=== PATIENT | female | born 1975 | race Caucasian/White ===

== ENCOUNTER 2018-08-18 11:34 | Emergency (ER) | payer OTHER ==
[2018-08-18] MEDS ORDERED: Sodium Chloride 0.9% 10 ML Syringe FLUSH PRN (11:49)
[2018-08-18] MEDS ORDERED: Sodium Chloride 0.9% 1,000 ML IV ONE (11:49)
[2018-08-18] MEDS ORDERED: Sodium Chloride 0.9% 2.5 ML Syringe FLUSH PRN (11:49)
--- NOTE | 2018-08-18 11:50 | EDM.PDOC ---
ED HPI GENERAL MEDICAL PROBLEM - General Chief Complaint: Abdominal Pain Stated Complaint: RECTAL BLEEDING Time Seen by Provider: 08/18/18 11:35 Source of Information: Reports: Patient History Limitations: Reports: No Limitations - History of Present Illness INITIAL COMMENTS - FREE TEXT/NARRATIVE: History of present illness: []Patient has had rectal bleeding since beginning of this year that has been receiving. She has an appointment with Dr. Nieto next week. She has diffuse abdominal pain is not localized to any specific area. Patient has been nauseated with nonbloody emesis. She denies any fevers, chills, new medications or diet changes. Patient denies being on any blood thinners or NSAID use. Review of systems: As per history of present illness and below otherwise all systems reviewed and negative. Past medical history: As per history of present illness and as reviewed below otherwise noncontributory. Surgical history: As per history of present illness and as reviewed below otherwise noncontributory. Social history: No reported history of drug or alcohol abuse. Family history: As per history of present illness and as reviewed below otherwise noncontributory. Physical exam: General: Well developed, well nourished in NAD HEENT: Atraumatic, normocephalic, pupils reactive, negative for conjunctival pallor or scleral icterus, mucous membranes moist, throat clear, neck supple, nontender, trachea midline. Lungs: Clear to auscultation, breath sounds equal bilaterally, chest nontender. Heart: S1S2, regular, negative for clicks, rubs, or JVD. Abdomen: NABS, Soft, nondistended, nontender. Negative for masses or hepatosplenomegaly. Negative for costovertebral tenderness. Pelvis: Stable nontender. Genitourinary: Deferred. Rectal: Patient declined exam Extremities: Atraumatic, negative for cords or calf pain. Neurovascular unremarkable. Neuro: Awake, alert, oriented. Cranial nerves II through XII unremarkable. Cerebellum unremarkable. Motor and sensory unremarkable throughout. Exam nonfocal. Skin:warm and dry Diagnostics: CBC, chemistry, coags, type and screen Therapeutics: IV hydration ED Course: Patient had an H&H on August 13 and today's H&H is unchanged. Her heart rate improved with hydration and she feels much better. Impression: Rectal bleeding Prescriptions: Zofran Plan: Follow-up with general surgery as scheduled return to ER if symptoms worsen or change. Definitive disposition and diagnosis as appropriate pending reevaluation and review of above. 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 ED EXAM, GI/ABD - Physical Exam Exam: See Below (See history of present illness) Course - Vital Signs Last Recorded V/S: Last Vital Signs Temp 97.9 F 08/18/18 11:43 Pulse 97 08/18/18 12:06 Resp 18 08/18/18 12:06 BP 108/69 08/18/18 12:06 Pulse Ox 98 08/18/18 12:06 - Orders/Labs/Meds Orders: Active Orders 24 hr Category Date Time Status COMPREHENSIVE METABOLIC PN,CMP [CHEM] Stat Lab 08/18/18 12:00 Received TYPE AND SCREEN [BBK] Stat Lab 08/18/18 12:00 Received Sodium Chloride 0.9% [Normal Saline] 1,000 ml Med 08/18/18 11:49 Active IV .Bolus Sodium Chloride 0.9% [Saline Flush] Med 08/18/18 11:49 Active 10 ml FLUSH ASDIRECTED PRN Sodium Chloride 0.9% [Saline Flush] Med 08/18/18 11:49 Active 2.5 ml FLUSH ASDIRECTED PRN Saline Lock Insert [OM.PC] Stat Oth 08/18/18 11:49 Ordered Medication Orders Sodium Chloride (Normal Saline) 1,000 mls @ 999 mls/hr IV .Bolus ONE Stop: 08/18/18 12:49 Last Admin: 08/18/18 12:03 Dose: 999 mls/hr Sodium Chloride (Saline Flush) 10 ml FLUSH ASDIRECTED PRN PRN Reason: Keep Vein Open Last Admin: 08/18/18 12:04 Dose: 10 ml Sodium Chloride (Saline Flush) 2.5 ml FLUSH ASDIRECTED PRN PRN Reason: Keep Vein Open Last Admin: 08/18/18 12:04 Dose: 2.5 ml Labs: Laboratory Tests 08/18/18 08/18/18 Range/Units 12:00 12:00 WBC 8.73 (4.0-11.0) K/uL RBC 4.41 (4.30-5.90) M/uL Hgb 13.7 (12.0-16.0) g/dL Hct 39.5 (36.0-46.0) % MCV 89.6 (80.0-98.0) fL MCH 31.1 (27.0-32.0) pg MCHC 34.7 (31.0-37.0) g/dL RDW Std Deviation 40.0 (28.0-62.0) fl RDW Coeff of [place] 12 (11.0-15.0) % Plt Count 426 H (150-400) K/uL MPV 8.70 (7.40-12.00) fL Neut % (Auto) 72.6 (48.0-80.0) % Lymph % (Auto) 14.8 L (16.0-40.0) % [place] % (Auto) 10.3 (0.0-15.0) % Eos % (Auto) 2.1 (0.0-7.0) % Baso % (Auto) 0.2 (0.0-1.5) % Neut # (Auto) 6.3 H (1.4-5.7) K/uL Lymph # (Auto) 1.3 (0.6-2.4) K/uL [place] # (Auto) 0.9 H (0.0-0.8) K/uL Eos # (Auto) 0.2 (0.0-0.7) K/uL Baso # (Auto) 0.0 (0.0-0.1) K/uL Nucleated RBC % 0.0 /100WBC Nucleated RBCs # 0 K/uL INR 1.13 APTT 26.4 (18.6-31.3) SEC Meds: Medications Generic Name Dose Route Start Last Admin Trade Name Freq PRN Reason Stop Dose Admin Sodium Chloride 1,000 mls @ 999 mls/hr 08/18/18 11:49 08/18/18 12:03 Normal Saline IV 08/18/18 12:49 999 mls/hr .Bolus ONE Administration Sodium Chloride 10 ml 08/18/18 11:49 08/18/18 12:04 Saline Flush FLUSH 10 ml ASDIRECTED PRN Administration Keep Vein Open Sodium Chloride 2.5 ml 08/18/18 11:49 08/18/18 12:04 Saline Flush FLUSH 2.5 ml ASDIRECTED PRN Administration Keep Vein Open Departure - Departure Time of Disposition: 12:39 Disposition: Home, Self-Care 01 Condition: Good Clinical Impression: Rectal bleeding - Discharge Information *PRESCRIPTION DRUG MONITORING PROGRAM REVIEWED*: No *COPY OF PRESCRIPTION DRUG MONITORING REPORT IN PATIENT STACI: No Prescriptions: Ondansetron HCl [Zofran] 4 mg PO Q4HR #12 tablet Referrals: John Hodge MD [Primary Care Provider] - Forms: ED Department Discharge Additional Instructions: The following information is given to patients seen in the emergency department who are being discharged to home. This information is to outline your options for follow-up care. We provide all patients seen in our emergency department with a follow-up referral. The need for follow-up, as well as the timing and circumstances, are variable depending upon the specifics of your emergency department visit. If you don't have a primary care physician on staff, we will provide you with a referral. We always advise you to contact your personal physician following an emergency department visit to inform them of the circumstance of the visit and for follow-up with them and/or the need for any referrals to a consulting specialist. The emergency department will also refer you to a specialist when appropriate. This referral assures that you have the opportunity for follow-up care with a specialist. All of these measure are taken in an effort to provide you with optimal care, which includes your follow-up. Under all circumstances we always encourage you to contact your private physician who remains a resource for coordinating your care. When calling for follow-up care, please make the office aware that this follow-up is from your recent emergency room visit. If for any reason you are refused follow-up, please contact the [facility] Emergency Department at and asked to speak to the emergency department charge nurse. Follow-up with Dr. Nieto as scheduled takes Zofran for nausea and vomiting, return to ER if any symptoms worsen or change. [facility] - General Surgery Professional Building [address] [place] [address], [address] [place] [address] - My Orders Last 24 Hours: My Active Orders 08/18/18 11:49 Sodium Chloride 0.9% [Normal Saline] 1,000 ml IV .Bolus Sodium Chloride 0.9% [Saline Flush] 10 ml FLUSH ASDIRECTED PRN Sodium Chloride 0.9% [Saline Flush] 2.5 ml FLUSH ASDIRECTED PRN Saline Lock Insert [OM.PC] Stat 08/18/18 12:00 COMPREHENSIVE METABOLIC PN,CMP [CHEM] Stat TYPE AND SCREEN [BBK] Stat - Assessment/Plan Last 24 Hours: My Active Orders 08/18/18 11:49 Sodium Chloride 0.9% [Normal Saline] 1,000 ml IV .Bolus Sodium Chloride 0.9% [Saline Flush] 10 ml FLUSH ASDIRECTED PRN Sodium Chloride 0.9% [Saline Flush] 2.5 ml FLUSH ASDIRECTED PRN Saline Lock Insert [OM.PC] Stat 08/18/18 12:00 COMPREHENSIVE METABOLIC PN,CMP [CHEM] Stat TYPE AND SCREEN [BBK] Stat
[2018-08-18 12:07] VITALS: BP 108/69
[2018-08-18 12:35] LABS: CHLORIDE,CL 101 mmol/L (98-107); SODIUM,NA 137 mmol/L (136-145)
== END 2018-08-18 12:59 | disposition home or self-care (01) ==
LOC: MW.ED 11:34
DX: K62.5 Hemorrhage of anus and rectum (principal)
CPT/HCPCS: 36415; 80053; 85025; 85610; 85730; 86850; 86900; 86901; 96360; 99283; J7040

== ENCOUNTER 2018-08-25 15:54 | Inpatient (IN) | payer OTHER ==
[2018-08-25] MEDS ORDERED: Ondansetron 4 MG/2 ML SDV IVPUSH PRN (16:06)
[2018-08-25] MEDS ORDERED: Morphine 10 MG/ML Syringe IVPUSH PRN (16:06)
[2018-08-25] MEDS ORDERED: Acetaminophen 325 MG Tab PO PRN (16:06)
[2018-08-25] MEDS ORDERED: Sodium Chloride 0.9% 2.5 ML Syringe FLUSH PRN (16:06)
--- NOTE | 2018-08-25 16:12 | PCM.HP ---
H&P History of Present Illness - General Date of Service: 08/25/18 Admit Problem/Dx: Admission Diagnosis/Problem Admission Diagnosis/Problem Diarrhea Source of Information: Patient History Limitations: Reports: No Limitations - History of Present Illness Initial Comments - Free Text/Narative: This 43 year old female with no significant pmh presented to Dr Holliday's office today after referral from PCP for diarrhea and blood stools. She reports this started middle of last month and she has been on and off nauseated with vomiting along with 30 stools a day that are mucousy and bloody. She reports urgency and painful stools with abdominal cramping when stools come on. She denies overt abdominal pain, but reports it feels sore, 1-2/10. She denies overt fevers and chills but reports intermittently having night sweats. She reports losing 25 pounds or so in the last 2 months. Mainly been drinking CL for over a month. 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 Reports having a colonscopy 10 years ago in [place] and per her report it was normal, she was told her diarrhea was from IBS at that time, she soon after found out she was and was not able to start medication the MD had ordered for her. She is unsure of what this is. She denies tobacco or alcohol use and no recreational drug use. No family history of colorectal ca. In the clinic, no leukocytosis noted. BUN 6, Cr 0.8/ K+ 3.7, Cdiff negative and campylobacter negative. other stool cultures and O&P pending. Positive leukocytes in the stool. CT of abdomen obtained as well which noted diffuse colonic wall thickening and enhancement rectum to transverse colon, question inflammatory versus infectious. PCP, Dr Hodge - Related Data Allergies/Adverse Reactions: Allergies Allergy/AdvReac Type Severity Reaction Status Date / Time No Known Allergies Allergy Verified 08/18/18 11:47 Home Medications: Home Meds Ondansetron HCl [Zofran] 4 mg PO Q4HR #12 tablet 08/18/18 [Rx] Past Medical History - Past Health History Medical/Surgical History: Denies Medical/Surgical History Cardiovascular History: Reports: None. Denies: CAD, Hypertension, MS Respiratory History: Reports: None. Denies: COPD, SOB Gastrointestinal History: Reports: Irritable Bowel Syndrome [employer] History: Reports: Musculoskeletal History: Reports: None Endocrine/Metabolic History: Reports: None. Denies: Diabetes, Type II, Hypothyroidism - Infectious Disease History Infectious Disease History: Reports: Chicken Pox Social & Family History - Family History Family Medical History: Noncontributory OBGYN: Reports: Oncologic: Reports: Prostate - Tobacco Use Smoking Status *Q: Never Smoker - Alcohol Use Alcohol Use History: No - Living Situation & Occupation Living situation: Reports: H&P Review of Systems - Review of Systems: Review Of Systems: See Below General: Reports: Malaise, Weakness, Fatigue, Night Sweats, Decreased Appetite. Denies: Fever, Chills HEENT: Denies: Headaches, Sinus Congestion, Sore Throat Pulmonary: Denies: Shortness of Breath, Wheezing, Cough, Sputum Cardiovascular: Denies: Chest Pain, Palpitations, Edema Gastrointestinal: Reports: Abdominal Pain (soreness diffusely), Bloody Stool, Decreased Appetite, Nausea, Vomiting Genitourinary: Reports: No Symptoms. Denies: Dysuria, Frequency, Burning Musculoskeletal: Reports: No Symptoms Skin: Reports: No Symptoms Psychiatric: Reports: No Symptoms Neurological: Reports: No Symptoms Hematologic/Lymphatic: Reports: No Symptoms Immunologic: Reports: No Symptoms Exam - Exam Exam: See Below - Exam General: Alert, Oriented, Cooperative HEENT: Conjunctiva Clear, Posterior Pharynx Clear. No: Mucosa Moist & [place] ( dry cracked lips.) Neck: Supple, Trachea Midline Lungs: Clear to Auscultation, Normal Respiratory Effort Cardiovascular: Regular Rate, Regular Rhythm, Normal S1, Normal S2 GI/Abdominal Exam: Normal Bowel Sounds, Soft, No Mass, Tender (reports soreness , no overt sharp tenderness.) Back Exam: Normal Inspection, Full Range of Motion Extremities: Normal Inspection, Normal Range of Motion, Non-Tender, No Pedal Edema Neuro Extensive - Mental Status: Alert, Oriented x3 Neuro Extensive - Motor, Sensory, Reflexes: CN II-XII Intact Psychiatric: Alert, Normal Affect, Normal Mood - Problem List (1) Diarrhea SNOMED Code(s): 09775225 ICD Code: R19.7 - DIARRHEA, UNSPECIFIED Status: Acute Current Visit: Yes (2) Colitis SNOMED Code(s): 98524483 ICD Code: K52.9 - NONINFECTIVE GASTROENTERITIS AND COLITIS, UNSPECIFIED Status: Acute Current Visit: Yes (3) Rectal bleeding SNOMED Code(s): 54400995 ICD Code: K62.5 - HEMORRHAGE OF ANUS AND RECTUM Status: Acute Current Visit: No Problem List Initiated/Reviewed/Updated: Yes Orders Last 24hrs: Active Orders 24 hr Category Date Time Status Patient Status [ADT] Routine ADT 08/25/18 16:06 Active Intake and Output [RC] QSHIFT Care 08/25/18 16:07 Active May Shower [RC] ASDIRECTED Care 08/25/18 16:06 Active Oxygen Therapy [RC] PRN Care 08/25/18 16:06 Active Up ad Cheryle [RC] ASDIRECTED Care 08/25/18 16:06 Active VTE/DVT Education [RC] PER UNIT ROUTINE Care 08/25/18 16:06 Active Vital Signs [RC] Q4H Care 08/25/18 16:06 Active Clear Liquid Diet [DIET] Diet 08/25/18 Dinner Active C-REACTIVE PROTEIN [CHEM] Routine Lab 08/25/18 16:06 Ordered CBC WITH AUTO DIFF [HEME] AM Lab 08/26/18 05:11 Ordered COMPREHENSIVE METABOLIC PN,CMP [CHEM] AM Lab 08/26/18 05:11 Ordered SEDIMENTATION RATE AUTO [HEME] Routine Lab 08/25/18 16:06 Ordered Acetaminophen [Tylenol] Med 08/25/18 16:06 Active 650 mg PO Q4H PRN Ciprofloxacin in D5W [Cipro in D5W 400 MG/200 ML] 400 Med 08/25/18 16:15 Active mg Premix Bag 1 bag IV Q12H Morphine Med 08/25/18 16:06 Ordered 2 mg IVPUSH Q2H PRN Ondansetron [Zofran] Med 08/25/18 16:06 Ordered 4 mg IVPUSH Q4H PRN Sodium Chloride 0.9% [Normal Saline] 1,000 ml Med 08/25/18 16:15 Ordered IV ASDIRECTED Sodium Chloride 0.9% [Saline Flush] Med 08/25/18 16:06 Active 2.5 ml FLUSH ASDIRECTED PRN metroNIDAZOLE/Normal Saline [Flagyl 500 MG in NS 100 ML Med 08/25/18 18:00 Ordered ] 500 mg Premix Bag 1 bag IV QID Saline Lock Insert [OM.PC] Routine Oth 08/25/18 16:06 Ordered Sequential Compression Device [OM.PC] Per Unit Routine Oth 08/25/18 16:07 Ordered Resuscitation Status Routine Resus Stat 08/25/18 16:06 Ordered Medication Orders Acetaminophen (Tylenol) 650 mg PO Q4H PRN PRN Reason: Pain (mild 1-3) Sodium Chloride (Normal Saline) 1,000 mls @ 125 mls/hr IV ASDIRECTED VALERIE Ciprofloxacin/Dextrose 400 mg/ (Premix) 200 mls @ 200 mls/hr IV Q12H VALERIE Metronidazole 500 mg/ Premix 100 mls @ 100 mls/hr IV QID VALERIE Morphine Sulfate (Morphine) 2 mg IVPUSH Q2H PRN PRN Reason: Pain (severe 7-10) Stop: 08/26/18 16:08 Ondansetron HCl (Zofran) 4 mg IVPUSH Q4H PRN PRN Reason: Nausea Sodium Chloride (Saline Flush) 2.5 ml FLUSH ASDIRECTED PRN PRN Reason: Keep Vein Open Assessment/Plan Comment:: This 43 year old female admitted with diarrhea, bloody stools and colitis 1. Colitis: Unknown if infectious vs inflammatory. Will check ESR CRP. Will keep CL diet for know. Start IVFs NS 125 for hydration. Will also start Cipro and flagyl and away further stool studies. Consult Dr Holliday. VTE prophylaxis: SCDs only Dispo: 1-2 days pending improvement.
[2018-08-25] MEDS: Sodium Chloride 0.9% 1,000 ML IV SCH (17:04)
[2018-08-25] MEDS: Ciprofloxacin in D5W 400 MG in Premix Bag 1 BAG IV SCH ×2 (17:04)
--- NOTE | 2018-08-25 17:06 | PCM.CONS ---
H&P History of Present Illness - General Date of Service: 08/25/18 Admit Problem/Dx: Admission Diagnosis/Problem Admission Diagnosis/Problem Diarrhea Source of Information: Patient History Limitations: Reports: No Limitations - History of Present Illness Initial Comments - Free Text/Narative: Patient is a 43-year-old female who presented to my clinic today with concerns of chronic diarrhea. This is associated with frequency, tenesmus, and hematochezia. She was seen by her primary care physician and by the emergency room. CBC and CMP was normal. She complained of multiple bloody stools last evening associated with lower abdominal cramping and nausea. She has lost 25 pounds and has been on a clear liquid diet for the past month. On clinical exam her abdomen was flat soft and nontender with no peritoneal signs however she was clearly failing to thrive. I ordered repeat blood work as well as stool studies and a stat CT abdomen pelvis. The CT showed diffuse thickening of the colon from the transverse colon down to the rectum. Her C. difficile and Campylobacter stool studies were negative. Her CBC was normal and her hemoglobin was stable. Given the possible inflammatory versus infectious etiology the colon as seen on CT scan I asked my medicine colleagues to admit the patient for further workup. They graciously agreed. See their notes for further details. - Related Data Allergies/Adverse Reactions: Allergies Allergy/AdvReac Type Severity Reaction Status Date / Time No Known Allergies Allergy Verified 08/18/18 11:47 Home Medications: Home Meds Ondansetron HCl [Zofran] 4 mg PO Q4HR #12 tablet 08/18/18 [Rx] Past Medical History - Past Health History Medical/Surgical History: Denies Medical/Surgical History Cardiovascular History: Reports: None. Denies: CAD, Hypertension, MD Respiratory History: Reports: None. 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 Denies: Diabetes, Type II, Hypothyroidism - Infectious Disease History Infectious Disease History: Reports: Chicken Pox Social & Family History - Family History Family Medical History: Noncontributory OBGYN: Reports: Oncologic: Reports: Prostate - Tobacco Use Smoking Status *Q: Never Smoker - Living Situation & Occupation Living situation: Reports: H&P Review of Systems - Review of Systems: Review Of Systems: ROS reveals no pertinent complaints other than HPI. Exam - Exam Exam: See Below - Vital Signs Vital Signs: Last Vital Signs Temp 36.1 C 08/25/18 16:17 Pulse Resp 16 08/25/18 16:17 BP 99/67 08/25/18 16:17 Pulse Ox 100 08/25/18 16:17 Weight: 64.183 kg - Exam General: Alert, Oriented, Lethargic HEENT: Conjunctiva Clear, Mucosa Moist & [place], Posterior Pharynx Clear Neck: Supple, Trachea Midline Lungs: Clear to Auscultation, Normal Respiratory Effort Cardiovascular: Regular Rate, Regular Rhythm GI/Abdominal Exam: Soft, Non-Tender, No Distention, No Mass (Female) Exam: Normal External Exam Rectal (Female) Exam: Normal Exam, Normal Rectal Tone, Heme + Stool Back Exam: Normal Inspection Extremities: Normal Inspection - Patient Data Lab Results Last 24 hrs: Laboratory Results - last 24 hr 08/25/18 Range/Units 10:35 ESR 53 H (0-19) mm/hr Consult PN Assessment/Plan Procedures: Procedures BLOOD TYPING SEROLOGIC ABO (08/18/18) BLOOD TYPING SEROLOGIC RH(D) (08/18/18) MERLY DNA DIR PROBE (08/16/18) CHORIONIC GONADOTROPIN TEST (08/10/18) COMPLETE CBC AUTOMATED (03/13/16) COMPLETE CBC W/AUTO DIFF WBC (08/18/18) COMPREHEN METABOLIC PANEL (08/18/18) CULTURE SCREEN ONLY (04/22/16) EMERGENCY DEPT VISIT (08/18/18) TALAVERA VAG DNA DIR PROBE (08/16/18) GLUCOSE TEST (03/13/16) GLUCOSE TOLERANCE TEST (GTT) (03/26/16) HYDRATION IV INFUSION INIT (08/18/18) PROTHROMBIN TIME (08/18/18) RBC ANTIBODY SCREEN (08/18/18) ROUTINE VENIPUNCTURE (08/18/18) SMEAR WET [place] SALINE/INK (10/12/15) THROMBOPLASTIN TIME PARTIAL (08/18/18) TRICHOMONAS VAGIN DIR PROBE (08/16/18) URINALYSIS AUTO W/SCOPE (08/13/18) URINE CULTURE/COLONY COUNT (08/10/18) (1) Colitis SNOMED Code(s): 02584700 Code(s): K52.9 - NONINFECTIVE GASTROENTERITIS AND COLITIS, UNSPECIFIED Current Visit: Yes (2) Diarrhea SNOMED Code(s): 98093548 Code(s): R19.7 - DIARRHEA, UNSPECIFIED Current Visit: Yes (3) Rectal bleeding SNOMED Code(s): 46851765 Code(s): K62.5 - HEMORRHAGE OF ANUS AND RECTUM Current Visit: No Problem List Initiated/Reviewed/Updated: Yes Plan: The patient is currently getting IV fluids, IV Cipro and Flagyl, and a clear liquid diet. We will await the results of the stool studies. We will see how she responds to her IV antibiotics. If she is positive for any infectious disease process we will treat that. If all of her testing is negative I'll consider her for a colonoscopy/sigmoidoscopy while inpatient to obtain biopsies and rule in or out an inflammatory etiology .
[2018-08-25] MEDS: metroNIDAZOLE/Normal Saline 500 MG in Premix Bag 1 BAG IV SCH ×2 (18:30→23:21)
[2018-08-26] MEDS: Ciprofloxacin in D5W 400 MG in Premix Bag 1 BAG IV SCH ×4 (04:25→16:45)
[2018-08-26] MEDS: metroNIDAZOLE/Normal Saline 500 MG in Premix Bag 1 BAG IV SCH ×4 (05:39→23:47)
[2018-08-26 06:05] LABS: CHLORIDE,CL 105 mmol/L (98-107); SODIUM,NA 140 mmol/L (136-145)
[2018-08-26] MEDS ORDERED: Potassium Chloride 40 MEQ in Sodium Chloride 0.9% 500 ML IV ONE (07:57)
--- NOTE | 2018-08-26 08:01 | PCM.PN ---
- General Info Date of Service: 08/26/18 Admission Dx/Problem (Free Text): Admission Diagnosis/Problem Admission Diagnosis/Problem Diarrhea Subjective Update: Feeling ok this morning, had loose bloody stools overnight, less than the night previous. Feeling more hydrated. No pain. No chest pain or dyspnea. Abdominal tenderness. Functional Status: Reports: Pain Controlled, Tolerating Diet, Ambulating, Urinating - Review of Systems General: Reports: Fatigue, Malaise. Denies: Fever Pulmonary: Reports: No Symptoms. Denies: Shortness of Breath Cardiovascular: Reports: No Symptoms. Denies: Chest Pain Gastrointestinal: Reports: No Symptoms. Denies: Abdominal Pain, Nausea, Vomiting Genitourinary: Reports: No Symptoms. Denies: Frequency, Burning Musculoskeletal: Reports: No Symptoms Skin: Reports: No Symptoms Neurological: Reports: No Symptoms Psychiatric: Reports: No Symptoms - Patient Data Vitals - Most Recent: Last Vital Signs Temp 97.6 F 08/26/18 07:45 Pulse 85 08/26/18 07:45 Resp 17 08/26/18 07:45 BP 100/59 L 08/26/18 07:45 Pulse Ox 97 08/26/18 07:45 Weight - Most Recent: 64.183 kg I&O - Last 24 Hours: Intake & Output 08/25/18 08/26/18 08/26/18 22:59 06:59 14:59 Intake Total 300 1714 Output Total 700 Balance 300 1014 Lab Results Last 24 Hours: Laboratory Results - last 24 hr 08/25/18 08/25/18 08/26/18 Range/Units 10:35 10:35 05:15 WBC 7.73 (4.0-11.0) K/uL RBC 3.89 L (4.30-5.90) M/uL Hgb 11.6 L (12.0-16.0) g/dL Hct 34.7 L (36.0-46.0) % MCV 89.2 (80.0-98.0) fL MCH 29.8 (27.0-32.0) pg MCHC 33.4 (31.0-37.0) g/dL RDW Std Deviation 40.4 (28.0-62.0) fl RDW Coeff of [place] 13 (11.0-15.0) % Plt Count 462 H (150-400) K/uL MPV 8.50 (7.40-12.00) fL Neut % (Auto) 64.7 (48.0-80.0) % Lymph % (Auto) 20.3 (16.0-40.0) % [place] % (Auto) 8.4 (0.0-15.0) % Eos % (Auto) 6.5 (0.0-7.0) % Baso % (Auto) 0.1 (0.0-1.5) % Neut # (Auto) 5.0 (1.4-5.7) K/uL Lymph # (Auto) 1.6 (0.6-2.4) K/uL [place] # (Auto) 0.7 (0.0-0.8) K/uL Eos # (Auto) 0.5 (0.0-0.7) K/uL Baso # (Auto) 0.0 (0.0-0.1) K/uL Nucleated RBC % 0.0 /100WBC Nucleated RBCs # 0 K/uL ESR 53 H (0-19) mm/hr Sodium (136-145) mmol/L Potassium (3.5-5.1) mmol/L Chloride (98-107) mmol/L Carbon Dioxide (21.0-32.0) mmol/L BUN (7.0-18.0) mg/dL Creatinine (0.6-1.0) mg/dL Est Cr Clr Drug Dosing mL/min Estimated GFR (MDRD) ml/min Glucose (74-106) mg/dL Calcium (8.5-10.1) mg/dL Total Bilirubin (0.2-1.0) mg/dL AST (15-37) IU/L ALT (14-63) IU/L Alkaline Phosphatase (46-116) U/L C-Reactive Protein 16.00 H (0.00-0.90) mg/dL Total Protein (6.4-8.2) g/dL Albumin (3.4-5.0) g/dL Globulin (2.6-4.0) g/dL Albumin/Globulin Ratio (0.9-1.6) 08/26/18 Range/Units 05:15 WBC (4.0-11.0) K/uL RBC (4.30-5.90) M/uL Hgb (12.0-16.0) g/dL Hct (36.0-46.0) % MCV (80.0-98.0) fL MCH (27.0-32.0) pg MCHC (31.0-37.0) g/dL RDW Std Deviation (28.0-62.0) fl RDW Coeff of [place] (11.0-15.0) % Plt Count (150-400) K/uL MPV (7.40-12.00) fL Neut % (Auto) (48.0-80.0) % Lymph % (Auto) (16.0-40.0) % [place] % (Auto) (0.0-15.0) % Eos % (Auto) (0.0-7.0) % Baso % (Auto) (0.0-1.5) % Neut # (Auto) (1.4-5.7) K/uL Lymph # (Auto) (0.6-2.4) K/uL [place] # (Auto) (0.0-0.8) K/uL Eos # (Auto) (0.0-0.7) K/uL Baso # (Auto) (0.0-0.1) K/uL Nucleated RBC % /100WBC Nucleated RBCs # K/uL ESR (0-19) mm/hr Sodium 140 (136-145) mmol/L Potassium 3.2 L (3.5-5.1) mmol/L Chloride 105 (98-107) mmol/L Carbon Dioxide 26.5 (21.0-32.0) mmol/L BUN 5 L (7.0-18.0) mg/dL Creatinine 0.8 (0.6-1.0) mg/dL Est Cr Clr Drug Dosing 75.78 mL/min Estimated GFR (MDRD) > 60.0 ml/min Glucose 132 H (74-106) mg/dL Calcium 8.3 L (8.5-10.1) mg/dL Total Bilirubin 0.3 (0.2-1.0) mg/dL AST 7 L (15-37) IU/L ALT 9 L (14-63) IU/L Alkaline Phosphatase 58 (46-116) U/L C-Reactive Protein (0.00-0.90) mg/dL Total Protein 5.7 L (6.4-8.2) g/dL Albumin 1.8 L (3.4-5.0) g/dL Globulin 3.9 (2.6-4.0) g/dL Albumin/Globulin Ratio 0.5 L (0.9-1.6) Med Orders - Current: Current Medications Acetaminophen (Tylenol) 650 mg PO Q4H PRN PRN Reason: Pain (mild 1-3) Sodium Chloride (Normal Saline) 1,000 mls @ 125 mls/hr IV ASDIRECTED [facility] Last Admin: 08/25/18 17:04 Dose: 125 mls/hr Ciprofloxacin/Dextrose 400 mg/ (Premix) 200 mls @ 200 mls/hr IV Q12H [facility] Last Admin: 08/26/18 04:25 Dose: 200 mls/hr Metronidazole 500 mg/ Premix 100 mls @ 100 mls/hr IV QID [facility] Last Admin: 08/26/18 05:39 Dose: 100 mls/hr Potassium Chloride 40 meq/ (Sodium Chloride) 500 mls @ 150 mls/hr IV ONETIME ONE Stop: 08/26/18 11:16 Morphine Sulfate (Morphine) 2 mg IVPUSH Q2H PRN PRN Reason: Pain (severe 7-10) Stop: 08/26/18 16:08 Ondansetron HCl (Zofran) 4 mg IVPUSH Q4H PRN PRN Reason: Nausea Sodium Chloride (Saline Flush) 2.5 ml FLUSH ASDIRECTED PRN PRN Reason: Keep Vein Open - Exam General: Alert, Oriented, Cooperative, No Acute Distress Neck: Supple Lungs: Clear to Auscultation, Normal Respiratory Effort Cardiovascular: Regular Rate, Regular Rhythm GI/Abdominal Exam: Normal Bowel Sounds, Soft, Tender (soreness diffusely) Back Exam: Normal Inspection, Full Range of Motion Extremities: Normal Inspection, Normal Range of Motion, Non-Tender, No Pedal Edema Wound/Incisions: Healing Well Neurological: No New Focal Deficit Psy/Mental Status: Alert, Normal Affect, Normal Mood - Problem List & Annotations (1) Diarrhea SNOMED Code(s): 21678390 Code(s): R19.7 - DIARRHEA, UNSPECIFIED Status: Acute Current Visit: Yes (2) Colitis SNOMED Code(s): 95827077 Code(s): K52.9 - NONINFECTIVE GASTROENTERITIS AND COLITIS, UNSPECIFIED Status: Acute Current Visit: Yes (3) Rectal bleeding SNOMED Code(s): 06601228 Code(s): K62.5 - HEMORRHAGE OF ANUS AND RECTUM Status: Acute Current Visit: No - Problem List Review Problem List Initiated/Reviewed/Updated: Yes - My Orders Last 24 Hours: My Active Orders 08/25/18 16:06 Patient Status [ADT] Routine May Shower [RC] ASDIRECTED Oxygen Therapy [RC] PRN Up ad Cheryle [RC] ASDIRECTED VTE/DVT Education [RC] PER UNIT ROUTINE Vital Signs [RC] Q4H Acetaminophen [Tylenol] 650 mg PO Q4H PRN Morphine 2 mg IVPUSH Q2H PRN Ondansetron [Zofran] 4 mg IVPUSH Q4H PRN Sodium Chloride 0.9% [Saline Flush] 2.5 ml FLUSH ASDIRECTED PRN Saline Lock Insert [OM.PC] Routine Resuscitation Status Routine 08/25/18 16:07 Intake and Output [RC] Q12H Sequential Compression Device [OM.PC] Per Unit Routine 08/25/18 16:15 Ciprofloxacin in D5W [Cipro in D5W 400 MG/200 ML] 400 mg Premix Bag 1 bag IV Q12H Sodium Chloride 0.9% [Normal Saline] 1,000 ml IV ASDIRECTED 08/25/18 16:50 Consult to Physician [CONS] Routine 08/25/18 16:51 Notify Provider Consults [RC] ASDIRECTED 08/25/18 18:00 metroNIDAZOLE/Normal Saline [Flagyl 500 MG in NS 100 ML] 500 mg Premix Bag 1 bag IV QID 08/25/18 Dinner Clear Liquid Diet [DIET] 08/26/18 07:57 Potassium Chloride 40 meq Sodium Chloride 0.9% [Normal Saline] 480 ml IV ONETIME 08/26/18 07:58 MAGNESIUM [CHEM] Routine - Plan Plan:: This 43 year old female admitted with diarrhea, bloody stools and colitis 1. Colitis: Unknown if infectious vs inflammatory. ESR CRP elevated, stool studies returning negative. Suspected inflammatory. NPO this morning, Dr Holliday will take to OR and perform sigmoidoscopy today. Continue IVFs NS 125 for hydration. Continue Cipro and Flagyl and await further stool studies. VTE prophylaxis: SCDs only Dispo: 1-2 days pending improvement.
--- NOTE | 2018-08-26 10:31 | PCM.PREANE ---
Preanesthetic Assessment - Anesthesia/Transfusion/Family Hx Anesthesia History: Prior Anesthesia Without Reaction Family History of Anesthesia Reaction: No Transfusion History: No Prior Transfusion(s) Intubation History: Unknown - Review of Systems General: No Symptoms Pulmonary: No Symptoms Cardiovascular: No Symptoms Gastrointestinal: Hematochezia (one month duration) Neurological: No Symptoms Other: Reports: None - Physical Assessment O2 Sat by Pulse Oximetry: 97 Respiratory Rate: 17 Vital Signs: Last Vital Signs Temp 36.4 C 08/26/18 07:45 Pulse 85 08/26/18 07:45 Resp 17 08/26/18 07:45 BP 100/59 L 08/26/18 07:45 Pulse Ox 97 08/26/18 07:45 Height: 1.6 m Weight: 64.183 kg ASA Class: 2 Mental Status: Alert & Oriented x3 Airway Class: Mallampati = 2 Dentition: Reports: Normal Dentition Thyro-Mental Finger Breadths: 3 Mouth Opening Finger Breadths: 2 ROM/Head Extension: Full Lungs: Clear to Auscultation, Normal Respiratory Effort Cardiovascular: Regular Rate, Regular Rhythm - Lab Values: Laboratory Last Values WBC 7.73 K/uL (4.0-11.0) 08/26/18 05:15 RBC 3.89 M/uL (4.30-5.90) L 08/26/18 05:15 Hgb 11.6 g/dL (12.0-16.0) L 08/26/18 05:15 Hct 34.7 % (36.0-46.0) L 08/26/18 05:15 MCV 89.2 fL (80.0-98.0) 08/26/18 05:15 MCH 29.8 pg (27.0-32.0) 08/26/18 05:15 MCHC 33.4 g/dL (31.0-37.0) 08/26/18 05:15 RDW Std Deviation 40.4 fl (28.0-62.0) 08/26/18 05:15 RDW Coeff of [place] 13 % (11.0-15.0) 08/26/18 05:15 Plt Count 462 K/uL (150-400) H 08/26/18 05:15 MPV 8.50 fL (7.40-12.00) 08/26/18 05:15 Neut % (Auto) 64.7 % (48.0-80.0) 08/26/18 05:15 Lymph % (Auto) 20.3 % (16.0-40.0) 08/26/18 05:15 [place] % (Auto) 8.4 % (0.0-15.0) 08/26/18 05:15 Eos % (Auto) 6.5 % (0.0-7.0) 08/26/18 05:15 Baso % (Auto) 0.1 % (0.0-1.5) 08/26/18 05:15 Neut # (Auto) 5.0 K/uL (1.4-5.7) 08/26/18 05:15 Lymph # (Auto) 1.6 K/uL (0.6-2.4) 08/26/18 05:15 [place] # (Auto) 0.7 K/uL (0.0-0.8) 08/26/18 05:15 Eos # (Auto) 0.5 K/uL (0.0-0.7) 08/26/18 05:15 Baso # (Auto) 0.0 K/uL (0.0-0.1) 08/26/18 05:15 Nucleated RBC % 0.0 /100WBC 08/26/18 05:15 Nucleated RBCs # 0 K/uL 08/26/18 05:15 ESR 53 mm/hr (0-19) H 08/25/18 10:35 Sodium 140 mmol/L (136-145) 08/26/18 05:15 Potassium 3.2 mmol/L (3.5-5.1) L 08/26/18 05:15 Chloride 105 mmol/L (98-107) 08/26/18 05:15 Carbon Dioxide 26.5 mmol/L (21.0-32.0) 08/26/18 05:15 BUN 5 mg/dL (7.0-18.0) L 08/26/18 05:15 Creatinine 0.8 mg/dL (0.6-1.0) 08/26/18 05:15 Est Cr Clr Drug Dosing 75.78 mL/min 08/26/18 05:15 Estimated GFR (MDRD) > 60.0 ml/min 08/26/18 05:15 Glucose 132 mg/dL (74-106) H 08/26/18 05:15 Calcium 8.3 mg/dL (8.5-10.1) L 08/26/18 05:15 Magnesium 2.1 mg/dL (1.8-2.4) 08/26/18 05:15 Total Bilirubin 0.3 mg/dL (0.2-1.0) 08/26/18 05:15 AST 7 IU/L (15-37) L 08/26/18 05:15 ALT 9 IU/L (14-63) L 08/26/18 05:15 Alkaline Phosphatase 58 U/L (46-116) 08/26/18 05:15 C-Reactive Protein 16.00 mg/dL (0.00-0.90) H 08/25/18 10:35 Total Protein 5.7 g/dL (6.4-8.2) L 08/26/18 05:15 Albumin 1.8 g/dL (3.4-5.0) L 08/26/18 05:15 Globulin 3.9 g/dL (2.6-4.0) 08/26/18 05:15 Albumin/Globulin Ratio 0.5 (0.9-1.6) L 08/26/18 05:15 HCG, Qual NEGATIVE (NEG) 08/26/18 05:15 - Allergies Allergies/Adverse Reactions: Allergies Allergy/AdvReac Type Severity Reaction Status Date / Time No Known Allergies Allergy Verified 08/18/18 11:47 - Blood Blood Available: No - Anesthesia Plan Pre-Op Medication Ordered: None - Acknowledgements Anesthesia Type Planned: MAC Pt an Appropriate Candidate for the Planned Anesthesia: Yes Alternatives and Risks of Anesthesia Discussed w Pt/Guardian: Yes Pt/Guardian Understands and Agrees with Anesthesia Plan: Yes PreAnesthesia Questionnaire - Past Health History Medical/Surgical History: Denies Medical/Surgical History Cardiovascular History: Reports: None. Denies: CAD, Hypertension, [place] Respiratory History: Reports: None. Denies: COPD, SOB Gastrointestinal History: Reports: Irritable Bowel Syndrome [employer] History: Reports: Musculoskeletal History: Reports: None Neurological History: Reports: Head Trauma Endocrine/Metabolic History: Reports: Other (See Below) (potassium level 3.2). Denies: Diabetes, Type II, Hypothyroidism Hematologic History: Reports: Anemia (mild) - Infectious Disease History Infectious Disease History: Reports: Chicken Pox - Past Surgical History GI Surgical History: Reports: Colonoscopy (12 years ago) Neurological Surgical History: Reports: None - SUBSTANCE USE Smoking Status *Q: Never Smoker Recreational Drug Use History: No - HOME MEDS Home Medications: Home Meds Ondansetron HCl [Zofran] 4 mg PO Q4HR #12 tablet 08/18/18 [Rx] - CURRENT (IN HOUSE) MEDS Current Meds: Current Medications Acetaminophen (Tylenol) 650 mg PO Q4H PRN PRN Reason: Pain (mild 1-3) Sodium Chloride (Normal Saline) 1,000 mls @ 125 mls/hr IV ASDIRECTED [facility] Last Admin: 08/25/18 17:04 Dose: 125 mls/hr Ciprofloxacin/Dextrose 400 mg/ (Premix) 200 mls @ 200 mls/hr IV Q12H [facility] Last Admin: 08/26/18 04:25 Dose: 200 mls/hr Metronidazole 500 mg/ Premix 100 mls @ 100 mls/hr IV QID [facility] Last Admin: 08/26/18 05:39 Dose: 100 mls/hr Potassium Chloride 40 meq/ (Sodium Chloride) 520 mls @ 130 mls/hr IV ONETIME ONE Stop: 08/26/18 11:56 Last Admin: 08/26/18 09:48 Dose: 130 mls/hr Morphine Sulfate (Morphine) 2 mg IVPUSH Q2H PRN PRN Reason: Pain (severe 7-10) Stop: 08/26/18 16:08 Ondansetron HCl (Zofran) 4 mg IVPUSH Q4H PRN PRN Reason: Nausea Sodium Chloride (Saline Flush) 2.5 ml FLUSH ASDIRECTED PRN PRN Reason: Keep Vein Open
[2018-08-26] MEDS ORDERED: Midazolam 1 MG/ML 2 ML SDV ONE (12:42)
[2018-08-26] MEDS ORDERED: fentaNYL 100 MCG/2 ML SDV ONE (12:42)
[2018-08-26] MEDS ORDERED: Propofol 200 MG/20 ML SDV ONE (12:43)
--- NOTE | 2018-08-26 13:35 | PCM.OPNOTE ---
- General Post-Op/Procedure Note Date of Surgery/Procedure: 08/26/18 Operative Procedure(s): Diagnostic proctoscopy Findings: Severe ulceration and inflammation of the rectum with bleeding consistent with ulcerative colitis. Pre Op Diagnosis: Colitis Post-Op Diagnosis: Ulcerative colitis Anesthesia Technique: [facility] [place] Primary Surgeon: Tanja Holliday Condition: Good Free Text/Narrative:: Intake & Output 08/25/18 08/26/18 08/26/18 22:59 06:59 14:59 Intake Total 300 1714 520 Output Total 700 Balance 300 1014 520
--- NOTE | 2018-08-26 13:37 | PCM.SN ---
- Free Text/Narrative Note: SPoke with Dr Holliday regarding Sigmoidoscopy findings, severe ulcerations noted. I called [facility] in [place] regarding next steps in treatment. He recommended IV Solumedrol 60 mg IV Q8hr for a couple days then transition to PO Prednisone 60 mg daily for 2 weeks, 40 mg x 2 weeks and by then she will have seen them and will have further direction in treatment. He gave me his nurses number so we can arrange for her to see him next week to set her up with another colonoscopy very soon, for further evaluation.
[2018-08-26] MEDS: methylPREDNISolone Sodium Succinate 125 MG/2 ML SDV IVPUSH SCH ×2 (14:54→21:12)
--- NOTE | 2018-08-26 16:10 | PCM.SURGPN ---
- General Info Date of Service: 08/26/18 Date of Surgery/Procedure: 08/26/18 POD#: 0 Functional Status: Reports: Ambulating, Urinating, New Symptoms, Incentive Spirometry - Review of Systems General: Reports: No Symptoms HEENT: Reports: No Symptoms Pulmonary: Reports: No Symptoms Cardiovascular: Reports: No Symptoms Gastrointestinal: Reports: Hematochezia - Patient Data Vitals - Most Recent: Last Vital Signs Temp 36.3 C 08/26/18 13:50 Pulse 83 08/26/18 13:50 Resp 16 08/26/18 13:50 BP 93/59 L 08/26/18 13:50 Pulse Ox 96 08/26/18 13:50 Weight - Most Recent: 64.183 kg I&O - Last 24 Hours: Intake & Output 08/26/18 08/26/18 08/26/18 06:59 14:59 22:59 Intake Total 1714 1320 100 Output Total 700 Balance 1014 1320 100 Lab Results Last 24 Hrs: Laboratory Results - last 24 hr 08/25/18 08/25/18 08/26/18 Range/Units 10:35 10:35 05:15 WBC 7.73 (4.0-11.0) K/uL RBC 3.89 L (4.30-5.90) M/uL Hgb 11.6 L (12.0-16.0) g/dL Hct 34.7 L (36.0-46.0) % MCV 89.2 (80.0-98.0) fL MCH 29.8 (27.0-32.0) pg MCHC 33.4 (31.0-37.0) g/dL RDW Std Deviation 40.4 (28.0-62.0) fl RDW Coeff of [place] 13 (11.0-15.0) % Plt Count 462 H (150-400) K/uL MPV 8.50 (7.40-12.00) fL Neut % (Auto) 64.7 (48.0-80.0) % Lymph % (Auto) 20.3 (16.0-40.0) % [place] % (Auto) 8.4 (0.0-15.0) % Eos % (Auto) 6.5 (0.0-7.0) % Baso % (Auto) 0.1 (0.0-1.5) % Neut # (Auto) 5.0 (1.4-5.7) K/uL Lymph # (Auto) 1.6 (0.6-2.4) K/uL [place] # (Auto) 0.7 (0.0-0.8) K/uL Eos # (Auto) 0.5 (0.0-0.7) K/uL Baso # (Auto) 0.0 (0.0-0.1) K/uL Nucleated RBC % 0.0 /100WBC Nucleated RBCs # 0 K/uL ESR 53 H (0-19) mm/hr Sodium (136-145) mmol/L Potassium (3.5-5.1) mmol/L Chloride (98-107) mmol/L Carbon Dioxide (21.0-32.0) mmol/L BUN (7.0-18.0) mg/dL Creatinine (0.6-1.0) mg/dL Est Cr Clr Drug Dosing mL/min Estimated GFR (MDRD) ml/min Glucose (74-106) mg/dL Calcium (8.5-10.1) mg/dL Magnesium (1.8-2.4) mg/dL Total Bilirubin (0.2-1.0) mg/dL AST (15-37) IU/L ALT (14-63) IU/L Alkaline Phosphatase (46-116) U/L C-Reactive Protein 16.00 H (0.00-0.90) mg/dL Total Protein (6.4-8.2) g/dL Albumin (3.4-5.0) g/dL Globulin (2.6-4.0) g/dL Albumin/Globulin Ratio (0.9-1.6) HCG, Qual (NEG) 08/26/18 08/26/18 08/26/18 Range/Units 05:15 05:15 05:15 WBC (4.0-11.0) K/uL RBC (4.30-5.90) M/uL Hgb (12.0-16.0) g/dL Hct (36.0-46.0) % MCV (80.0-98.0) fL MCH (27.0-32.0) pg MCHC (31.0-37.0) g/dL RDW Std Deviation (28.0-62.0) fl RDW Coeff of [place] (11.0-15.0) % Plt Count (150-400) K/uL MPV (7.40-12.00) fL Neut % (Auto) (48.0-80.0) % Lymph % (Auto) (16.0-40.0) % [place] % (Auto) (0.0-15.0) % Eos % (Auto) (0.0-7.0) % Baso % (Auto) (0.0-1.5) % Neut # (Auto) (1.4-5.7) K/uL Lymph # (Auto) (0.6-2.4) K/uL [place] # (Auto) (0.0-0.8) K/uL Eos # (Auto) (0.0-0.7) K/uL Baso # (Auto) (0.0-0.1) K/uL Nucleated RBC % /100WBC Nucleated RBCs # K/uL ESR (0-19) mm/hr Sodium 140 (136-145) mmol/L Potassium 3.2 L (3.5-5.1) mmol/L Chloride 105 (98-107) mmol/L Carbon Dioxide 26.5 (21.0-32.0) mmol/L BUN 5 L (7.0-18.0) mg/dL Creatinine 0.8 (0.6-1.0) mg/dL Est Cr Clr Drug Dosing 75.78 mL/min Estimated GFR (MDRD) > 60.0 ml/min Glucose 132 H (74-106) mg/dL Calcium 8.3 L (8.5-10.1) mg/dL Magnesium 2.1 (1.8-2.4) mg/dL Total Bilirubin 0.3 (0.2-1.0) mg/dL AST 7 L (15-37) IU/L ALT 9 L (14-63) IU/L Alkaline Phosphatase 58 (46-116) U/L C-Reactive Protein (0.00-0.90) mg/dL Total Protein 5.7 L (6.4-8.2) g/dL Albumin 1.8 L (3.4-5.0) g/dL Globulin 3.9 (2.6-4.0) g/dL Albumin/Globulin Ratio 0.5 L (0.9-1.6) HCG, Qual NEGATIVE (NEG) Med Orders - Current: Current Medications Acetaminophen (Tylenol) 650 mg PO Q4H PRN PRN Reason: Pain (mild 1-3) Heparin Sodium (Porcine) (Heparin Sodium) 5,000 units SUBCUT BID [facility] Sodium Chloride (Normal Saline) 1,000 mls @ 125 mls/hr IV ASDIRECTED [facility] Last Admin: 08/25/18 17:04 Dose: 125 mls/hr Ciprofloxacin/Dextrose 400 mg/ (Premix) 200 mls @ 200 mls/hr IV Q12H [facility] Last Admin: 08/26/18 04:25 Dose: 200 mls/hr Metronidazole 500 mg/ Premix 100 mls @ 100 mls/hr IV QID [facility] Last Admin: 08/26/18 14:54 Dose: 100 mls/hr Methylprednisolone Sodium Succinate (Solu-Medrol) 60 mg IVPUSH Q8H [facility] Last Admin: 08/26/18 14:54 Dose: 60 mg Morphine Sulfate (Morphine) 2 mg IVPUSH Q2H PRN PRN Reason: Pain (severe 7-10) Stop: 08/26/18 16:08 Ondansetron HCl (Zofran) 4 mg IVPUSH Q4H PRN PRN Reason: Nausea Sodium Chloride (Saline Flush) 2.5 ml FLUSH ASDIRECTED PRN PRN Reason: Keep Vein Open Discontinued Medications Fentanyl (Sublimaze) Confirm Administered Dose 100 mcg .ROUTE .STK-MED ONE Stop: 08/26/18 12:43 Potassium Chloride 40 meq/ (Sodium Chloride) 520 mls @ 130 mls/hr IV ONETIME ONE Stop: 08/26/18 11:56 Last Admin: 08/26/18 09:48 Dose: 130 mls/hr Midazolam HCl (Versed 1 Mg/Ml) Confirm Administered Dose 2 mg .ROUTE .STK-MED ONE Stop: 08/26/18 12:43 Propofol (Diprivan 20 Ml) Confirm Administered Dose 200 mg .ROUTE .STK-MED ONE Stop: 08/26/18 12:44 - Exam General: Alert, Oriented HEENT: Pupils Equal Lungs: Normal Respiratory Effort Cardiovascular: Regular Rate GI/Abdominal Exam: Soft, Non-Tender, No Distention, No Mass Skin: Warm, Dry, Intact - Problem List & Annotations (1) Colitis SNOMED Code(s): 89357080 Code(s): K52.9 - NONINFECTIVE GASTROENTERITIS AND COLITIS, UNSPECIFIED Status: Acute Current Visit: Yes (2) Diarrhea SNOMED Code(s): 70552210 Code(s): R19.7 - DIARRHEA, UNSPECIFIED Status: Acute Current Visit: Yes (3) Rectal bleeding SNOMED Code(s): 13345824 Code(s): K62.5 - HEMORRHAGE OF ANUS AND RECTUM Status: Acute Current Visit: No (4) Ulcerative colitis with rectal bleeding SNOMED Code(s): 31673721 Code(s): K51.911 - ULCERATIVE COLITIS, UNSPECIFIED WITH RECTAL BLEEDING Status: Acute Current Visit: Yes - Problem List Review Problem List Initiated/Reviewed/Updated: Yes - My Orders Last 24 Hours: Active Orders 24 hr Category Date Time Status Patient Status [ADT] Stat ADT 08/26/18 14:17 Active Intake and Output [RC] Q12H Care 08/25/18 16:07 Active May Shower [RC] ASDIRECTED Care 08/25/18 16:06 Active Notify Provider Consults [RC] ASDIRECTED Care 08/25/18 16:51 Active Oxygen Therapy [RC] PRN Care 08/25/18 16:06 Active Up ad Cheryle [RC] ASDIRECTED Care 08/25/18 16:06 Active VTE/DVT Education [RC] PER UNIT ROUTINE Care 08/25/18 16:06 Active Vital Signs [RC] Q4H Care 08/25/18 16:06 Active Consult to Physician [CONS] Routine Cons 08/25/18 16:50 Active Clear Liquid Diet [DIET] Diet 08/26/18 Dinner Active CBC WITH AUTO DIFF [HEME] AM Lab 08/27/18 05:11 Ordered CBC WITH AUTO DIFF [HEME] AM Lab 08/28/18 05:11 Ordered CBC WITH AUTO DIFF [HEME] AM Lab 08/29/18 05:11 Ordered COMPREHENSIVE METABOLIC PN,CMP [CHEM] AM Lab 08/27/18 05:11 Ordered COMPREHENSIVE METABOLIC PN,CMP [CHEM] AM Lab 08/28/18 05:11 Ordered COMPREHENSIVE METABOLIC PN,CMP [CHEM] AM Lab 08/29/18 05:11 Ordered Acetaminophen [Tylenol] Med 08/25/18 16:06 Active 650 mg PO Q4H PRN Ciprofloxacin in D5W [Cipro in D5W 400 MG/200 ML] 400 Med 08/25/18 16:15 Active mg Premix Bag 1 bag IV Q12H Heparin Sodium Med 08/26/18 21:00 Active 5,000 units SUBCUT BID Morphine Med 08/25/18 16:06 Active 2 mg IVPUSH Q2H PRN Ondansetron [Zofran] Med 08/25/18 16:06 Active 4 mg IVPUSH Q4H PRN Sodium Chloride 0.9% [Normal Saline] 1,000 ml Med 08/25/18 16:15 Active IV ASDIRECTED Sodium Chloride 0.9% [Saline Flush] Med 08/25/18 16:06 Active 2.5 ml FLUSH ASDIRECTED PRN methylPREDNISolone Sod Succ [Solu-MEDROL] Med 08/26/18 13:45 Active 60 mg IVPUSH Q8H metroNIDAZOLE/Normal Saline [Flagyl 500 MG in NS 100 ML Med 08/25/18 18:00 Active ] 500 mg Premix Bag 1 bag IV QID Saline Lock Insert [OM.PC] Routine Oth 08/25/18 16:06 Ordered Sequential Compression Device [OM.PC] Per Unit Routine Oth 08/25/18 16:07 Ordered Resuscitation Status Routine Resus Stat 08/25/18 16:06 Ordered Medication Orders Acetaminophen (Tylenol) 650 mg PO Q4H PRN PRN Reason: Pain (mild 1-3) Heparin Sodium (Porcine) (Heparin Sodium) 5,000 units SUBCUT BID [facility] Sodium Chloride (Normal Saline) 1,000 mls @ 125 mls/hr IV ASDIRECTED [facility] Last Admin: 08/25/18 17:04 Dose: 125 mls/hr Ciprofloxacin/Dextrose 400 mg/ (Premix) 200 mls @ 200 mls/hr IV Q12H [facility] Last Admin: 08/26/18 04:25 Dose: 200 mls/hr Infusion: 08/25/18 18:04 Dose: 200 mls/hr Admin: 08/25/18 17:04 Dose: 200 mls/hr Metronidazole 500 mg/ Premix 100 mls @ 100 mls/hr IV QID [facility] Last Admin: 08/26/18 14:54 Dose: 100 mls/hr Infusion: 08/26/18 06:39 Dose: 100 mls/hr Admin: 08/26/18 05:39 Dose: 100 mls/hr Infusion: 08/26/18 00:21 Dose: 100 mls/hr Admin: 08/25/18 23:21 Dose: 100 mls/hr Infusion: 08/25/18 19:30 Dose: 100 mls/hr Admin: 08/25/18 18:30 Dose: 100 mls/hr Methylprednisolone Sodium Succinate (Solu-Medrol) 60 mg IVPUSH Q8H [facility] Last Admin: 08/26/18 14:54 Dose: 60 mg Morphine Sulfate (Morphine) 2 mg IVPUSH Q2H PRN PRN Reason: Pain (severe 7-10) Stop: 08/26/18 16:08 Ondansetron HCl (Zofran) 4 mg IVPUSH Q4H PRN PRN Reason: Nausea Sodium Chloride (Saline Flush) 2.5 ml FLUSH ASDIRECTED PRN PRN Reason: Keep Vein Open - Assessment Assessment (Free Text/Narrative):: Patient's diagnostic proctoscopy showed severe inflammation, ulceration and diffuse bleeding consistent with ulcerative colitis. She will get IV glucocorticoids, continue broad spectrum antibiotics, IVFs, and clear liquid diet. At this time no signs of sepsis, abdominal pain, or toxicity. Will see how patient is progressing tomorrow. Remainder of cares per medicine service.
--- NOTE | 2018-08-26 17:00 | PCM48HPAN ---
Post Anesthesia Note - EVALUATION WITHIN 48HRS OF ANESTHETIC Vital Signs in Normal Range: Yes Patient Participated in Evaluation: Yes Respiratory Function Stable: Yes Airway Patent: Yes Cardiovascular Function Stable: Yes Hydration Status Stable: Yes Pain Control Satisfactory: Yes Nausea and Vomiting Control Satisfactory: Yes Pulse Rate: 77 SaO2: 95 Resp Rate: 16 Blood Pressure: 128/68 - COMMENTS/OBSERVATIONS Free Text/Narrative:: awake and alert. drinking water. no pain, no nausea. Good post op phase II recovery.
[2018-08-26] MEDS: Sodium Chloride 0.9% 1,000 ML IV SCH (19:37)
[2018-08-26] MEDS: Heparin Sodium 5,000 Units/ML Vial SUBCUT SCH (20:18)
[2018-08-27] MEDS: Ciprofloxacin in D5W 400 MG in Premix Bag 1 BAG IV SCH ×4 (03:28→15:33)
[2018-08-27] MEDS: methylPREDNISolone Sodium Succinate 125 MG/2 ML SDV IVPUSH SCH ×3 (05:09→21:42)
[2018-08-27] MEDS: metroNIDAZOLE/Normal Saline 500 MG in Premix Bag 1 BAG IV SCH ×3 (05:10→17:18)
[2018-08-27] MEDS: Sodium Chloride 0.9% 1,000 ML IV SCH ×2 (05:10→15:38)
[2018-08-27 06:15] LABS: CHLORIDE,CL 110 mmol/L (98-107); SODIUM,NA 142 mmol/L (136-145)
[2018-08-27] MEDS: Heparin Sodium 5,000 Units/ML Vial SUBCUT SCH ×2 (08:50→21:43)
--- NOTE | 2018-08-27 09:04 | PCM.PN ---
- General Info Date of Service: 08/27/18 Admission Dx/Problem (Free Text): Admission Diagnosis/Problem Admission Diagnosis/Problem Diarrhea Subjective Update: Feeling improved today. Only 1 stool over night. No abdominal pain. Pain with stool though. Appetite still poor, but tolerating CLs well. Functional Status: Reports: Pain Controlled, Tolerating Diet, Ambulating, Urinating - Review of Systems General: Reports: Malaise (slowly improving). Denies: Weakness, Fatigue HEENT: Reports: No Symptoms. Denies: Ear Pain, Headaches, Sore Throat Pulmonary: Reports: No Symptoms. Denies: Shortness of Breath Cardiovascular: Reports: No Symptoms. Denies: Chest Pain Gastrointestinal: Reports: Abdominal Pain (soreness remains.), Decreased Appetite. Denies: Nausea, Vomiting Genitourinary: Reports: No Symptoms. Denies: Dysuria, Frequency, Burning Musculoskeletal: Reports: No Symptoms Skin: Reports: No Symptoms Neurological: Reports: No Symptoms Psychiatric: Reports: No Symptoms - Patient Data Vitals - Most Recent: Last Vital Signs Temp 97.5 F 08/27/18 08:46 Pulse 70 08/27/18 08:46 Resp 16 08/27/18 08:46 BP 90/50 L 08/27/18 08:46 Pulse Ox 98 08/27/18 08:46 Weight - Most Recent: 64.183 kg I&O - Last 24 Hours: Intake & Output 08/26/18 08/27/18 08/27/18 22:59 06:59 14:59 Intake Total 2016 920 Output Total 650 1860 Balance 1366 -940 Lab Results Last 24 Hours: Laboratory Results - last 24 hr 08/26/18 08/27/18 08/27/18 Range/Units 05:15 05:25 05:25 WBC 5.87 (4.0-11.0) K/uL RBC 3.65 L (4.30-5.90) M/uL Hgb 10.9 L (12.0-16.0) g/dL Hct 32.6 L (36.0-46.0) % MCV 89.3 (80.0-98.0) fL MCH 29.9 (27.0-32.0) pg MCHC 33.4 (31.0-37.0) g/dL RDW Std Deviation 41.2 (28.0-62.0) fl RDW Coeff of [place] 13 (11.0-15.0) % Plt Count 425 H (150-400) K/uL MPV 8.50 (7.40-12.00) fL Neut % (Auto) 85.1 H (48.0-80.0) % Lymph % (Auto) 10.9 L (16.0-40.0) % [place] % (Auto) 3.6 (0.0-15.0) % Eos % (Auto) 0.2 (0.0-7.0) % Baso % (Auto) 0.2 (0.0-1.5) % Neut # (Auto) 5.0 (1.4-5.7) K/uL Lymph # (Auto) 0.6 (0.6-2.4) K/uL [place] # (Auto) 0.2 (0.0-0.8) K/uL Eos # (Auto) 0.0 (0.0-0.7) K/uL Baso # (Auto) 0.0 (0.0-0.1) K/uL Nucleated RBC % 0.0 /100WBC Nucleated RBCs # 0 K/uL Sodium 142 (136-145) mmol/L Potassium 3.5 (3.5-5.1) mmol/L Chloride 110 H (98-107) mmol/L Carbon Dioxide 20.2 L (21.0-32.0) mmol/L BUN 5 L (7.0-18.0) mg/dL Creatinine 0.5 L (0.6-1.0) mg/dL Est Cr Clr Drug Dosing 121.25 mL/min Estimated GFR (MDRD) > 60.0 ml/min Glucose 173 H (74-106) mg/dL Calcium 8.3 L (8.5-10.1) mg/dL Total Bilirubin 0.2 (0.2-1.0) mg/dL AST 7 L (15-37) IU/L ALT 9 L (14-63) IU/L Alkaline Phosphatase 56 (46-116) U/L Total Protein 5.4 L (6.4-8.2) g/dL Albumin 1.6 L (3.4-5.0) g/dL Globulin 3.8 (2.6-4.0) g/dL Albumin/Globulin Ratio 0.4 L (0.9-1.6) HCG, Qual NEGATIVE (NEG) Med Orders - Current: Current Medications Acetaminophen (Tylenol) 650 mg PO Q4H PRN PRN Reason: Pain (mild 1-3) Heparin Sodium (Porcine) (Heparin Sodium) 5,000 units SUBCUT BID [facility] Last Admin: 08/27/18 08:50 Dose: 5,000 units Sodium Chloride (Normal Saline) 1,000 mls @ 125 mls/hr IV ASDIRECTED [facility] Last Admin: 08/27/18 05:10 Dose: 125 mls/hr Ciprofloxacin/Dextrose 400 mg/ (Premix) 200 mls @ 200 mls/hr IV Q12H [facility] Last Admin: 08/27/18 03:28 Dose: 200 mls/hr Metronidazole 500 mg/ Premix 100 mls @ 100 mls/hr IV QID [facility] Last Admin: 08/27/18 05:10 Dose: 100 mls/hr Methylprednisolone Sodium Succinate (Solu-Medrol) 60 mg IVPUSH Q8H [facility] Last Admin: 08/27/18 05:09 Dose: 60 mg Ondansetron HCl (Zofran) 4 mg IVPUSH Q4H PRN PRN Reason: Nausea Sodium Chloride (Saline Flush) 2.5 ml FLUSH ASDIRECTED PRN PRN Reason: Keep Vein Open Discontinued Medications Fentanyl (Sublimaze) Confirm Administered Dose 100 mcg .ROUTE .STK-MED ONE Stop: 08/26/18 12:43 Potassium Chloride 40 meq/ (Sodium Chloride) 520 mls @ 130 mls/hr IV ONETIME ONE Stop: 08/26/18 11:56 Last Admin: 08/26/18 09:48 Dose: 130 mls/hr Midazolam HCl (Versed 1 Mg/Ml) Confirm Administered Dose 2 mg .ROUTE .STK-MED ONE Stop: 08/26/18 12:43 Morphine Sulfate (Morphine) 2 mg IVPUSH Q2H PRN PRN Reason: Pain (severe 7-10) Stop: 08/26/18 16:08 Propofol (Diprivan 20 Ml) Confirm Administered Dose 200 mg .ROUTE .STK-MED ONE Stop: 08/26/18 12:44 - Exam General: Alert, Oriented, Cooperative, No Acute Distress Lungs: Clear to Auscultation, Normal Respiratory Effort Cardiovascular: Regular Rate, Regular Rhythm GI/Abdominal Exam: Normal Bowel Sounds, Soft, Tender (very scant tenderness) Extremities: Normal Inspection, Normal Range of Motion, Non-Tender, No Pedal Edema Neurological: No New Focal Deficit Psy/Mental Status: Alert, Normal Affect, Normal Mood - Problem List & Annotations (1) Ulcerative colitis with rectal bleeding SNOMED Code(s): 23180293 Code(s): K51.911 - ULCERATIVE COLITIS, UNSPECIFIED WITH RECTAL BLEEDING Status: Acute Current Visit: Yes (2) Diarrhea SNOMED Code(s): 58032943 Code(s): R19.7 - DIARRHEA, UNSPECIFIED Status: Acute Current Visit: Yes (3) Colitis SNOMED Code(s): 97985070 Code(s): K52.9 - NONINFECTIVE GASTROENTERITIS AND COLITIS, UNSPECIFIED Status: Acute Current Visit: Yes (4) Rectal bleeding SNOMED Code(s): 49331860 Code(s): K62.5 - HEMORRHAGE OF ANUS AND RECTUM Status: Acute Current Visit: No - Problem List Review Problem List Initiated/Reviewed/Updated: Yes - My Orders Last 24 Hours: My Active Orders 08/26/18 13:45 methylPREDNISolone Sod Succ [Solu-MEDROL] 60 mg IVPUSH Q8H 08/26/18 14:17 Patient Status [ADT] Stat 08/26/18 21:00 Heparin Sodium 5,000 units SUBCUT BID 08/26/18 Dinner Clear Liquid Diet [DIET] 08/28/18 05:11 CBC WITH AUTO DIFF [HEME] AM COMPREHENSIVE METABOLIC PN,CMP [CHEM] AM 08/29/18 05:11 CBC WITH AUTO DIFF [HEME] AM COMPREHENSIVE METABOLIC PN,CMP [CHEM] AM - Plan Plan:: This 43 year old female admitted with diarrhea, bloody stools and colitis 1. Colitis: Dr Holliday performed proctoscopy yesterday, revealed deep ulcerations throughout. Biopsies obtained. I spoke with Dr Troy, GI specialist in [place]. Recommended Solumedrol 60 mg IV Q8hr x 2 days then may transition to Prednisone 60 mg x 2 weeks, then 40 mg x 2 weeks, then he will see her and arrange further treatment plans and colonscopy. His nurse has information and will contact patient for appointment. Continue IVFs NS 125 for hydration. Continue Cipro and Flagyl for now. VTE prophylaxis: Heparin Dispo: Thursday at earliest do to need for IV solumedrol.
--- NOTE | 2018-08-27 12:17 | PCM.SN ---
- Free Text/Narrative Note: Patient is a 43-year-old female who presented with bloody chronic diarrhea. I performed a diagnostic proctoscopy on the patient yesterday that showed severe ulcerative colitis. She was placed on IV steroids and broad-spectrum IV antibiotics. Overnight she had one bowel movement but is otherwise feeling much better. Her vital signs are stable and on physical exam she has no abdominal pain or bloating. At this point in time I will sign off. She has follow-up scheduled with a GI physician in [place] next week. If any further questions or concerns should arise please feel free to contact me. I appreciate the hospitalist's excellent cares of this patient.
--- NOTE | 2018-08-27 13:00 | OR ---
SURGEON: JAYSON DAVIS MD DATE OF PROCEDURE: 08/26/2018 PREOPERATIVE DIAGNOSIS: Colitis. POSTOPERATIVE DIAGNOSIS: Severe ulcerative colitis. PROCEDURE PERFORMED: Diagnostic proctoscopy. ANESTHESIA: MAC. INSTRUMENT USED: Olympus colonoscope. EXTENT OF EXAM: To the rectum. PREPARATION: Good. LIMITATIONS: Severe inflammation and ulceration of the colon. INDICATIONS: The patient is a 43-year-old female who presented to my clinic with one month of bloody copious diarrhea. She appeared weak and unwell on clinical exam. She was sent for a CT of the abdomen and pelvis that showed diffuse colonic wall thickening from the transverse colon to the rectum. She was admitted to the hospitalist team for close observation. Stool cultures were performed, which were negative. The decision was made to proceed with a diagnostic sigmoidoscopy. I explained to the patient that should I get into the colon and see severe inflammation, this would be a diagnostic proctoscopy instead. I discussed the need for biopsies to determine whether this is an inflammatory versus an infectious disease process. I explained the procedure, expected perioperative course, and risks including bleeding, infection, or damage to surrounding structures including perforation. The patient verbalized understanding and wishes to proceed. PROCEDURE IN DETAIL: The patient was brought into the endoscopy suite and placed in the left lateral decubitus position. A time-out was completed verifying the patient's name, age, date of , allergies, and procedure to be performed. Monitored anesthesia care was induced and continuous oxygen was provided via nasal cannula throughout the procedure. After adequate sedation was achieved, a digital rectal exam was performed. This exam revealed gross bloody stool as well as an irregular- feeling mucosa within the rectum. A well lubricated colonoscope was inserted into the rectum. I immediately noted severe inflammation of the colonic and rectal mucosa with deep ulcers and sloughing of the overlying mucosa. Multiple photographs of this were taken. I took superficial biopsies of the sloughing mucosa and sent to Pathology, labeled as rectal biopsy. The decision was made to not proceed any further, given the severity of my findings. The scope was removed and the procedure terminated. The patient tolerated the procedure well and was taken to PACU in stable condition. ENDOSCOPIC DIAGNOSIS: Severe ulcerative colitis. RECOMMENDATIONS: I visited with our hospitalist team, and they consulted a GI physician in [place], [place]. He recommended high-dose IV steroids for two days with transitioning to oral steroids. She will be on broad-spectrum antibiotics as well and will follow up with GI next week. I appreciate the hospitalist team in managing the care of this patient. I will follow up with her to ensure that with this treatment, she is clinically improving. CARLENE RICHARD /[id number] SACHIN
[2018-08-28] MEDS: metroNIDAZOLE/Normal Saline 500 MG in Premix Bag 1 BAG IV SCH ×5 (00:18→23:37)
[2018-08-28] MEDS: Sodium Chloride 0.9% 1,000 ML IV SCH ×2 (03:34→14:46)
[2018-08-28] MEDS: Ciprofloxacin in D5W 400 MG in Premix Bag 1 BAG IV SCH ×4 (05:04→17:24)
[2018-08-28] MEDS: methylPREDNISolone Sodium Succinate 125 MG/2 ML SDV IVPUSH SCH ×3 (06:21→21:19)
[2018-08-28 06:53] LABS: CHLORIDE,CL 111 mmol/L (98-107); SODIUM,NA 142 mmol/L (136-145)
[2018-08-28] MEDS: Heparin Sodium 5,000 Units/ML Vial SUBCUT SCH ×2 (08:27→21:16)
[2018-08-28] MEDS ORDERED: Ibuprofen 400 MG Tab PO ONE (14:28)
--- NOTE | 2018-08-28 14:32 | PCM.PN ---
- General Info Date of Service: 08/28/18 Admission Dx/Problem (Free Text): Admission Diagnosis/Problem Admission Diagnosis/Problem Diarrhea Subjective Update: Follow-up colitis Patient feels better, much less frequency for bowel movements, about 3-4 times a day, 20 times a day on admission. She still can see blood in her stool' Feels mild nausea. Denies fever chills, vomiting. She does not have any abdominal pain unless she gets bowel movement Functional Status: Reports: Pain Controlled - Review of Systems General: Reports: Other (Refer to subjective update) HEENT: Reports: No Symptoms Pulmonary: Reports: No Symptoms Cardiovascular: Reports: No Symptoms Gastrointestinal: Reports: Diarrhea Musculoskeletal: Reports: No Symptoms Skin: Reports: No Symptoms Neurological: Reports: No Symptoms Psychiatric: Reports: No Symptoms - Patient Data Vitals - Most Recent: Last Vital Signs Temp 35.9 C 08/28/18 12:00 Pulse 51 L 08/28/18 12:00 Resp 22 H 08/28/18 12:00 BP 100/57 L 08/28/18 12:00 Pulse Ox 96 08/28/18 12:00 Weight - Most Recent: 64.183 kg I&O - Last 24 Hours: Intake & Output 08/27/18 08/28/18 08/28/18 22:59 06:59 14:59 Intake Total 2725 2042 Output Total 600 1400 Balance 2125 642 Lab Results Last 24 Hours: Laboratory Results - last 24 hr 08/28/18 08/28/18 Range/Units 06:16 06:16 WBC 7.36 (4.0-11.0) K/uL RBC 3.36 L (4.30-5.90) M/uL Hgb 10.0 L (12.0-16.0) g/dL Hct 29.8 L (36.0-46.0) % MCV 88.7 (80.0-98.0) fL MCH 29.8 (27.0-32.0) pg MCHC 33.6 (31.0-37.0) g/dL RDW Std Deviation 41.3 (28.0-62.0) fl RDW Coeff of [place] 13 (11.0-15.0) % Plt Count 423 H (150-400) K/uL MPV 8.20 (7.40-12.00) fL Neut % (Auto) 82.3 H (48.0-80.0) % Lymph % (Auto) 12.9 L (16.0-40.0) % [place] % (Auto) 4.8 (0.0-15.0) % Eos % (Auto) 0.0 (0.0-7.0) % Baso % (Auto) 0.0 (0.0-1.5) % Neut # (Auto) 6.1 H (1.4-5.7) K/uL Lymph # (Auto) 1.0 (0.6-2.4) K/uL [place] # (Auto) 0.4 (0.0-0.8) K/uL Eos # (Auto) 0.0 (0.0-0.7) K/uL Baso # (Auto) 0.0 (0.0-0.1) K/uL Nucleated RBC % 0.0 /100WBC Nucleated RBCs # 0 K/uL Sodium 142 (136-145) mmol/L Potassium 3.4 L (3.5-5.1) mmol/L Chloride 111 H (98-107) mmol/L Carbon Dioxide 22.2 (21.0-32.0) mmol/L BUN 7 (7.0-18.0) mg/dL Creatinine 0.6 (0.6-1.0) mg/dL Est Cr Clr Drug Dosing 101.04 mL/min Estimated GFR (MDRD) > 60.0 ml/min Glucose 178 H (74-106) mg/dL Calcium 8.0 L (8.5-10.1) mg/dL Total Bilirubin 0.2 (0.2-1.0) mg/dL AST 8 L (15-37) IU/L ALT 9 L (14-63) IU/L Alkaline Phosphatase 48 (46-116) U/L Total Protein 4.9 L (6.4-8.2) g/dL Albumin 1.6 L (3.4-5.0) g/dL Globulin 3.3 (2.6-4.0) g/dL Albumin/Globulin Ratio 0.5 L (0.9-1.6) Med Orders - Current: Current Medications Acetaminophen (Tylenol) 650 mg PO Q4H PRN PRN Reason: Pain (mild 1-3) Heparin Sodium (Porcine) (Heparin Sodium) 5,000 units SUBCUT BID [facility] Last Admin: 08/28/18 08:27 Dose: 5,000 units Sodium Chloride (Normal Saline) 1,000 mls @ 125 mls/hr IV ASDIRECTED [facility] Last Admin: 08/28/18 03:34 Dose: 125 mls/hr Ciprofloxacin/Dextrose 400 mg/ (Premix) 200 mls @ 200 mls/hr IV Q12H [facility] Last Admin: 08/28/18 05:04 Dose: 200 mls/hr Metronidazole 500 mg/ Premix 100 mls @ 100 mls/hr IV QID [facility] Last Admin: 08/28/18 11:31 Dose: 100 mls/hr Methylprednisolone Sodium Succinate (Solu-Medrol) 60 mg IVPUSH Q8H [facility] Last Admin: 08/28/18 13:06 Dose: 60 mg Ondansetron HCl (Zofran) 4 mg IVPUSH Q4H PRN PRN Reason: Nausea Sodium Chloride (Saline Flush) 2.5 ml FLUSH ASDIRECTED PRN PRN Reason: Keep Vein Open Discontinued Medications Fentanyl (Sublimaze) Confirm Administered Dose 100 mcg .ROUTE .STK-MED ONE Stop: 08/26/18 12:43 Potassium Chloride 40 meq/ (Sodium Chloride) 520 mls @ 130 mls/hr IV ONETIME ONE Stop: 08/26/18 11:56 Last Admin: 08/26/18 09:48 Dose: 130 mls/hr Midazolam HCl (Versed 1 Mg/Ml) Confirm Administered Dose 2 mg .ROUTE .STK-MED ONE Stop: 08/26/18 12:43 Morphine Sulfate (Morphine) 2 mg IVPUSH Q2H PRN PRN Reason: Pain (severe 7-10) Stop: 08/26/18 16:08 Propofol (Diprivan 20 Ml) Confirm Administered Dose 200 mg .ROUTE .STK-MED ONE Stop: 08/26/18 12:44 - Exam Quality Assessment: DVT Prophylaxis General: Alert, Oriented, Cooperative, No Acute Distress HEENT: Pupils Equal, Pupils Reactive, EOMI Neck: Supple, Trachea Midline, No JVD Lungs: Clear to Auscultation, Normal Respiratory Effort Cardiovascular: Regular Rate, Regular Rhythm, No Murmurs GI/Abdominal Exam: Normal Bowel Sounds, Soft, No Distention, Tender Extremities: Normal Inspection, Normal Range of Motion, Non-Tender, No Pedal Edema Skin: Warm, Dry Neurological: No New Focal Deficit, Strength Equal Bilateral, Reflexes Equal Bilateral Psy/Mental Status: Normal Affect - Problem List Review Problem List Initiated/Reviewed/Updated: Yes - Plan Plan:: This 43 year old female admitted with diarrhea, bloody stools and colitis 1. Ulcerative colitis: Imrpoving. Dr Holliday performed proctoscopy 08/27/2018, revealing deep ulcerations throughout. Biopsies obtained. Discussed with Dr Troy, GI specialist in [place], who recommended Solumedrol 60 mg IV Q8hr x 2 days then may transition to Prednisone 60 mg x 2 weeks, then 40 mg x 2 weeks, then he will see her and arrange further treatment plans and colonscopy. His nurse has information and will contact patient for appointment. will discontinue solumedrol and switch to po prednisone tomorrow Continue IVFs NS 125 for hydration. Continue Cipro and Flagyl. 2. Anemia stable monitor daily 3. Hypokalemia K given VTE prophylaxis: Heparin Discharge: tomorrow.
[2018-08-28] MEDS: Potassium Chloride 20 MEQ Tab.ER PO SCH ×2 (14:56→21:16)
[2018-08-29] MEDS: Sodium Chloride 0.9% 1,000 ML IV SCH (02:11)
[2018-08-29] MEDS: Ciprofloxacin in D5W 400 MG in Premix Bag 1 BAG IV SCH ×2 (04:18)
[2018-08-29] MEDS: methylPREDNISolone Sodium Succinate 125 MG/2 ML SDV IVPUSH SCH (06:41)
[2018-08-29] MEDS: metroNIDAZOLE/Normal Saline 500 MG in Premix Bag 1 BAG IV SCH (06:44)
[2018-08-29 06:45] LABS: CHLORIDE,CL 110 mmol/L (98-107); SODIUM,NA 141 mmol/L (136-145)
[2018-08-29 07:59] VITALS: BP 100/62
[2018-08-29] MEDS ORDERED: predniSONE 10 MG Tab PO SCH (08:00)
[2018-08-29] MEDS: Heparin Sodium 5,000 Units/ML Vial SUBCUT SCH (08:10)
--- NOTE | 2018-08-29 09:35 | PCM.DCSUM1 ---
Discharge Summary - Hospital Course Free Text/Narrative:: Admission date: 08/25/2018 Discharge date: 08/29/2018 Admission diagnosis: #1. Colitis #2. Diarrhea, abdominal pain secondary to #1 Discharge diagnosis: #1. Ulcerative Colitis #2. Diarrhea - improving #3. Normocytic anemia - stable Consults: #1. Dr. Holliday - General Surgery #2. Dr. Troy - GI ([facility]) Hospital course: 43F who presented to the general surgery clinic from PCP for further work up on abdominal pain, persistent bloody diarrhea who was then admitted for further work up. General surgery was consulted and it was found on sigmoidoscopy that she has findings consistent w/ Ulcerative colitis. GI in [place] was contacted, who recommended that she be placed on IV solumedrol for a few days, followed by a prednisone taper that she is to take at home for the next 28 days. She is to f/u with GI, Dr. Troy upon completion of this prednisone taper for further management. At the time of discharge, her diarrhea had significantly improved along w/ her abdominal pain. She was tolerating PO. She feels comfortable going home. Disposition: Home Medications: #1. Prednisone 60mg PO qday x 14 days followed by #2. Prednisone 40mg PO qday x 14 days - Discharge Data Discharge Date: 08/29/18 Discharge Disposition: Home, Self-Care 01 Condition: Good - Patient Summary/Data Operative Procedure(s) Performed: Diagnostic proctoscopy Consults: Consultations 08/25/18 16:50 Consult to Physician [CONS] Routine - Patient Instructions Diet: Usual Diet as Tolerated Activity: As Tolerated Notify Provider of: Fever, Nausea and/or Vomiting Other/Special Instructions: increased diarrhea, bloody stool - Discharge Plan Prescriptions/Med Rec: predniSONE [Prednisone] 60 mg PO DAILY 14 Days #70 tablet Home Medications: Home Meds Ondansetron HCl [Zofran] 4 mg PO Q4HR #12 tablet 08/18/18 [Rx] predniSONE [Prednisone] 60 mg PO DAILY 14 Days #70 tablet 08/29/18 [Rx] Referrals: John Hodge MD [Primary Care Provider] - 09/01/18 3:30 pm - Discharge Summary/Plan Comment DC Time >30 min.: No - Patient Data Vitals - Most Recent: Last Vital Signs Temp 36.2 C 08/29/18 07:58 Pulse 51 L 08/29/18 07:58 Resp 14 08/29/18 07:58 BP 100/62 08/29/18 07:58 Pulse Ox 96 08/29/18 07:58 Weight - Most Recent: 64.183 kg I&O - Last 24 hours: Intake & Output 08/28/18 08/29/18 08/29/18 22:59 06:59 14:59 Intake Total 1700 1480 Output Total 1600 2300 Balance 100 -820 Lab Results - Last 24 hrs: Laboratory Results - last 24 hr 08/29/18 08/29/18 Range/Units 06:05 06:05 WBC 6.44 (4.0-11.0) K/uL RBC 3.41 L (4.30-5.90) M/uL Hgb 10.1 L (12.0-16.0) g/dL Hct 30.4 L (36.0-46.0) % MCV 89.1 (80.0-98.0) fL MCH 29.6 (27.0-32.0) pg MCHC 33.2 (31.0-37.0) g/dL RDW Std Deviation 41.8 (28.0-62.0) fl RDW Coeff of [place] 13 (11.0-15.0) % Plt Count 412 H (150-400) K/uL MPV 8.30 (7.40-12.00) fL Neut % (Auto) 77.6 (48.0-80.0) % Lymph % (Auto) 14.6 L (16.0-40.0) % [place] % (Auto) 7.6 (0.0-15.0) % Eos % (Auto) 0.0 (0.0-7.0) % Baso % (Auto) 0.2 (0.0-1.5) % Neut # (Auto) 5.0 (1.4-5.7) K/uL Lymph # (Auto) 0.9 (0.6-2.4) K/uL [place] # (Auto) 0.5 (0.0-0.8) K/uL Eos # (Auto) 0.0 (0.0-0.7) K/uL Baso # (Auto) 0.0 (0.0-0.1) K/uL Nucleated RBC % 0.0 /100WBC Nucleated RBCs # 0 K/uL Sodium 141 (136-145) mmol/L Potassium 3.9 (3.5-5.1) mmol/L Chloride 110 H (98-107) mmol/L Carbon Dioxide 21.7 (21.0-32.0) mmol/L BUN 6 L (7.0-18.0) mg/dL Creatinine 0.6 (0.6-1.0) mg/dL Est Cr Clr Drug Dosing 101.04 mL/min Estimated GFR (MDRD) > 60.0 ml/min Glucose 172 H (74-106) mg/dL Calcium 8.1 L (8.5-10.1) mg/dL Total Bilirubin 0.1 L (0.2-1.0) mg/dL AST 9 L (15-37) IU/L ALT 8 L (14-63) IU/L Alkaline Phosphatase 46 (46-116) U/L Total Protein 4.8 L (6.4-8.2) g/dL Albumin 1.7 L (3.4-5.0) g/dL Globulin 3.1 (2.6-4.0) g/dL Albumin/Globulin Ratio 0.6 L (0.9-1.6) Med Orders - Current: Current Medications Acetaminophen (Tylenol) 650 mg PO Q4H PRN PRN Reason: Pain (mild 1-3) Heparin Sodium (Porcine) (Heparin Sodium) 5,000 units SUBCUT BID [facility] Last Admin: 08/29/18 08:10 Dose: 5,000 units Sodium Chloride (Normal Saline) 1,000 mls @ 125 mls/hr IV ASDIRECTED [facility] Last Admin: 08/29/18 02:11 Dose: 125 mls/hr Ciprofloxacin/Dextrose 400 mg/ (Premix) 200 mls @ 200 mls/hr IV Q12H [facility] Last Admin: 08/29/18 04:18 Dose: 200 mls/hr Metronidazole 500 mg/ Premix 100 mls @ 100 mls/hr IV QID [facility] Last Admin: 08/29/18 06:44 Dose: 100 mls/hr Ondansetron HCl (Zofran) 4 mg IVPUSH Q4H PRN PRN Reason: Nausea Prednisone (Prednisone) 60 mg PO WITHBREAKFAST [facility] Last Admin: 08/29/18 08:10 Dose: 60 mg Sodium Chloride (Saline Flush) 2.5 ml FLUSH ASDIRECTED PRN PRN Reason: Keep Vein Open Discontinued Medications Fentanyl (Sublimaze) Confirm Administered Dose 100 mcg .ROUTE .STK-MED ONE Stop: 08/26/18 12:43 Potassium Chloride 40 meq/ (Sodium Chloride) 520 mls @ 130 mls/hr IV ONETIME ONE Stop: 08/26/18 11:56 Last Admin: 08/26/18 09:48 Dose: 130 mls/hr Ibuprofen (Motrin) 400 mg PO ONETIME ONE Stop: 08/28/18 14:29 Last Admin: 08/28/18 14:44 Dose: 400 mg Methylprednisolone Sodium Succinate (Solu-Medrol) 60 mg IVPUSH Q8H [facility] Stop: 08/29/18 07:00 Last Admin: 08/29/18 06:41 Dose: 60 mg Midazolam HCl (Versed 1 Mg/Ml) Confirm Administered Dose 2 mg .ROUTE .STK-MED ONE Stop: 08/26/18 12:43 Morphine Sulfate (Morphine) 2 mg IVPUSH Q2H PRN PRN Reason: Pain (severe 7-10) Stop: 08/26/18 16:08 Potassium Chloride (Klor-Con M20) 20 meq PO BID [facility] Stop: 08/28/18 21:01 Last Admin: 08/28/18 21:16 Dose: 20 meq Propofol (Diprivan 20 Ml) Confirm Administered Dose 200 mg .ROUTE .STK-MED ONE Stop: 08/26/18 12:44
== END 2018-08-29 11:15 | disposition home or self-care (01) | DRG 387 ==
LOC: MW.MS 15:54 → OBSVTOIN 08-26 14:17 → MW.MS 08-26 14:18
PROVIDERS: ADMIT Internal Medicine; ATTEND Internal Medicine
PROC: 0DBP8ZX Excision of Rectum, Via Natural or Artificial Opening Endoscopic, Diagnostic (ICD-10-PCS; principal; 2018-08-26)
DX: K51.911 Ulcerative colitis, unspecified with rectal bleeding (principal); I25.10 Atherosclerotic heart disease of native coronary artery without angina pectoris; I10 Essential (primary) hypertension; J44.9 Chronic obstructive pulmonary disease, unspecified; E11.9 Type 2 diabetes mellitus without complications; E03.9 Hypothyroidism, unspecified; E87.6 Hypokalemia; D64.9 Anemia, unspecified; I25.2 Old myocardial infarction
CPT/HCPCS: 00811; 36415; 74177; 74177-26; 80048; 80053; 83630; 83735; 84703; 85025; 85027; 85652; 86140; 87046; 87324; 87328; 87329; 87338; 87899; 88305; 96365; 96366; 96367; 96375; 96376; A9270-GY; G0378; G0379; J0744; J1644; J2250; J2704; J2930; J3010; J3480; J3490; J7040; Q9967

== ENCOUNTER 2018-12-08 16:21 | Inpatient (IN) | payer OTHER ==
[2018-12-08] MEDS ORDERED: Ondansetron 4 MG/2 ML SDV IVPUSH ONE (16:22)
[2018-12-08] MEDS ORDERED: Sodium Chloride 0.9% 1,000 ML IV ONE ×2 (16:22→17:33)
--- NOTE | 2018-12-08 16:34 | EDM.PDOC ---
ED HPI GENERAL MEDICAL PROBLEM - General Chief Complaint: General Stated Complaint: DR HODGE PT Time Seen by Provider: 12/08/18 16:31 Source of Information: Reports: Patient History Limitations: Reports: No Limitations - History of Present Illness INITIAL COMMENTS - FREE TEXT/NARRATIVE: History of present illness: []She was diagnosed with ulcerative colitis in August and has been having difficulty keeping food down,50 pound weight loss and early on when diagnosed she had several bloody stools which have since subsided. She currently denies any abdominal pain. She is followed by Dr. Hodge and was in radiology having a repeat x-ray to follow up review his abnormal x-ray when she had a syncopal episode in radiology. Patient was brought Immediately to the emergency room. Patient denies any recent fevers, chills she did vomit once in radiology but had not has not had any diarrhea Review of systems: As per history of present illness and below otherwise all systems reviewed and negative. Past medical history: As per history of present illness and as reviewed below otherwise noncontributory. Surgical history: As per history of present illness and as reviewed below otherwise noncontributory. Social history: No reported history of drug or alcohol abuse. Family history: As per history of present illness and as reviewed below otherwise noncontributory. Physical exam: General: Well developed, well nourished in NAD HEENT: Atraumatic, normocephalic, pupils reactive, negative for conjunctival pallor or scleral icterus, mucous membranes moist, throat clear, neck supple, nontender, trachea midline. Lungs: Clear to auscultation, breath sounds equal bilaterally, chest nontender. Heart: S1S2, regular, negative for clicks, rubs, or JVD. Abdomen: NABS, Soft, nondistended, nontender. Negative for masses or hepatosplenomegaly. Negative for costovertebral tenderness. Pelvis: Stable nontender. Genitourinary: Deferred. Rectal: Deferred. Extremities: Atraumatic, negative for cords or calf pain. Neurovascular unremarkable. Neuro: Awake, alert, oriented. Cranial nerves II through XII unremarkable. Cerebellum unremarkable. Motor and sensory unremarkable throughout. Exam nonfocal. Skin:warm and dry Diagnostics: CBC, chemistry Therapeutics: IV hydration normal saline 1 L ED Course: Hypotension improved with IV fluids, discussed with Dr. Lara for possible admission for albumin infusion Impression: Ulcerative colitis, hypoalbuminemia, hypotension Prescriptions: None Plan: Dr. Lara, hospitalist for observation for further care and treatment Definitive disposition and diagnosis as appropriate pending reevaluation and review of above. - Related Data Allergies Allergy/AdvReac Type Severity Reaction Status Date / Time No Known Allergies Allergy Verified 12/08/18 16:30 Home Meds: Home Meds . 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 Denies: Diabetes, Type II, Hypothyroidism Hematologic History: Reports: Anemia - Infectious Disease History Infectious Disease History: Reports: Chicken Pox - Past Surgical History GI Surgical History: Reports: Colonoscopy Neurological Surgical History: Reports: None Social & Family History - Family History Family Medical History: Noncontributory OBGYN: Reports: Oncologic: Reports: Prostate - Tobacco Use Smoking Status *Q: Never Smoker - Caffeine Use Caffeine Use: Reports: None - Recreational Drug Use Recreational Drug Use: No - Living Situation & Occupation Living situation: Reports: ED ROS GENERAL - Review of Systems Review Of Systems: ROS reveals no pertinent complaints other than HPI. ED EXAM, GENERAL - Physical Exam Exam: See Below (History of present illness:) Course - Vital Signs Last Recorded V/S: Last Vital Signs Temp 98.2 F 12/08/18 16:24 Pulse 87 12/08/18 17:50 Resp 18 12/08/18 17:50 BP 100/57 L 12/08/18 17:50 Pulse Ox 98 12/08/18 17:50 - Orders/Labs/Meds Orders: Active Orders 24 hr Category Date Time Status Patient Status [ADT] Stat ADT 12/08/18 17:18 Active EKG Documentation Completion [RC] STAT Care 12/08/18 16:31 Active UA W/MICROSCOPIC [URIN] Stat Lab 12/08/18 16:34 Ordered Medication Orders Acetaminophen (Tylenol) 650 mg PO Q4H PRN PRN Reason: Pain (Mild 1-3)/fever Albumin Human (Buminate 5%) 250 mls @ 125 mls/hr IV Q2H VALERIE Stop: 12/08/18 22:29 Sodium Chloride (Normal Saline) 1,000 mls @ 125 mls/hr IV ASDIRECTED VALERIE Last Admin: 12/08/18 18:48 Dose: 125 mls/hr Labs: Laboratory Tests 12/08/18 12/08/18 Range/Units 16:28 16:28 WBC 10.14 (4.0-11.0) K/uL RBC 3.96 L (4.30-5.90) M/uL Hgb 11.5 L (12.0-16.0) g/dL Hct 35.2 L (36.0-46.0) % MCV 88.9 (80.0-98.0) fL MCH 29.0 (27.0-32.0) pg MCHC 32.7 (31.0-37.0) g/dL RDW Std Deviation 48.6 (28.0-62.0) fl RDW Coeff of [place] 15 (11.0-15.0) % Plt Count 455 H (150-400) K/uL MPV 8.30 (7.40-12.00) fL Neut % (Auto) 70.6 (48.0-80.0) % Lymph % (Auto) 22.5 (16.0-40.0) % [place] % (Auto) 6.2 (0.0-15.0) % Eos % (Auto) 0.6 (0.0-7.0) % Baso % (Auto) 0.1 (0.0-1.5) % Neut # (Auto) 7.2 H (1.4-5.7) K/uL Lymph # (Auto) 2.3 (0.6-2.4) K/uL [place] # (Auto) 0.6 (0.0-0.8) K/uL Eos # (Auto) 0.1 (0.0-0.7) K/uL Baso # (Auto) 0.0 (0.0-0.1) K/uL Nucleated RBC % 0.0 /100WBC Nucleated RBCs # 0 K/uL Sodium 140 (136-145) mmol/L Potassium 3.1 L (3.5-5.1) mmol/L Chloride 106 (98-107) mmol/L Carbon Dioxide 24.6 (21.0-32.0) mmol/L BUN 7 (7.0-18.0) mg/dL Creatinine 0.7 (0.6-1.0) mg/dL Est Cr Clr Drug Dosing TNP Estimated GFR (MDRD) > 60.0 ml/min Glucose 106 (74-106) mg/dL Calcium 8.0 L (8.5-10.1) mg/dL Total Bilirubin 0.2 (0.2-1.0) mg/dL AST 16 (15-37) IU/L ALT 14 (14-63) IU/L Alkaline Phosphatase 169 H (46-116) U/L Total Protein 6.1 L (6.4-8.2) g/dL Albumin 1.4 L (3.4-5.0) g/dL Globulin 4.7 H (2.6-4.0) g/dL Albumin/Globulin Ratio 0.3 L (0.9-1.6) Lipase 159 (73-393) U/L Meds: Medications Generic Name Dose Route Start Last Admin Trade Name Freq PRN Reason Stop Dose Admin Acetaminophen 650 mg 12/08/18 18:23 Tylenol PO Q4H PRN Pain (Mild 1-3)/fever Albumin Human 250 mls @ 125 mls/hr 12/08/18 18:30 Buminate 5% IV 12/08/18 22:29 Q2H VALERIE Sodium Chloride 1,000 mls @ 125 mls/hr 12/08/18 18:30 12/08/18 18:48 Normal Saline IV 125 mls/hr ASDIRECTED VALERIE Administration Discontinued Medications Generic Name Dose Route Start Last Admin Trade Name Freq PRN Reason Stop Dose Admin Sodium Chloride 1,000 mls @ 999 mls/hr 12/08/18 16:22 12/08/18 16:36 Normal Saline IV 12/08/18 17:22 999 mls/hr BOLUS ONE Administration Sodium Chloride 1,000 mls @ 999 mls/hr 12/08/18 17:33 12/08/18 17:41 Normal Saline IV 12/08/18 18:33 999 mls/hr .Bolus ONE Administration Ondansetron HCl 4 mg 12/08/18 16:22 12/08/18 16:37 Zoammy IVPUSH 12/08/18 16:23 Not Given ONETIME ONE Potassium Chloride 40 meq 12/08/18 18:21 12/08/18 18:47 Klor-Con M20 PO 12/08/18 18:22 40 meq ONETIME ONE Administration Departure - Departure Time of Disposition: 17:55 Disposition: Refer to Observation Condition: Good Clinical Impression: Syncope due to orthostatic hypotension, Hypoalbuminemia Ulcerative colitis Qualifiers: Ulcerative colitis location: other ulcerative colitis Digestive disease complication type: unspecified complication Qualified Code(s): K51.819 - Other ulcerative colitis with unspecified complications - Discharge Information *PRESCRIPTION DRUG MONITORING PROGRAM REVIEWED*: No *COPY OF PRESCRIPTION DRUG MONITORING REPORT IN PATIENT STACI: No - My Orders Last 24 Hours: My Active Orders 12/08/18 16:34 UA W/MICROSCOPIC [URIN] Stat 12/08/18 17:18 Patient Status [ADT] Stat - Assessment/Plan Last 24 Hours: My Active Orders 12/08/18 16:34 UA W/MICROSCOPIC [URIN] Stat 12/08/18 17:18 Patient Status [ADT] Stat
[2018-12-08 17:04] LABS: CHLORIDE,CL 106 mmol/L (98-107); SODIUM,NA 140 mmol/L (136-145)
[2018-12-08] MEDS ORDERED: Potassium Chloride 20 MEQ Tab.ER PO ONE (18:21)
--- NOTE | 2018-12-08 18:27 | PCM.HP ---
H&P History of Present Illness - General Date of Service: 12/08/18 Admit Problem/Dx: Admission Diagnosis/Problem Admission Diagnosis/Problem Ulcerative colitis Source of Information: Patient History Limitations: Reports: No Limitations - History of Present Illness Initial Comments - Free Text/Narative: 43F with a new diagnosis of Ulcerative colitis presented to the ER after a syncopal episode. Patient was seen by her PCP for generalized weakness who had sent her to radiology for abdominal x-ray because of concerns of constipation. Incidentally, it was noted on this x-ray that she had a basilar infiltrate. Before obtaining this x-ray, patient had a syncopal episode in the radiology room. LOC was brief, no nausea, vomiting, chest pain. She has never had an issue like this before. Patient's UC was dx in 08/2018. She was placed on a prednisone taper and was advised to f/u with GI. She tells me that GI recommended a biologic agent which she refused because of side effects concern. She finished the prednisone taper back then, and bloody stools had subsided since then. She doesn't have any abdominal pain today. Her diet is very much plant based, with no meats up until this past week when she introduced eggs in her diet. ER work up was significant for hypotension and hypoalbuminemia. She was given 2L of IV NS in the ER. Albumin is 1.4. She denies any cough, fever, shortness of breath. - Related Data Allergies/Adverse Reactions: Allergies Allergy/AdvReac Type Severity Reaction Status Date / Time No Known Allergies Allergy Verified 12/08/18 16:30 Home Medications: Home Meds . 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 Denies: Diabetes, Type II, Hypothyroidism Hematologic History: Reports: Anemia - Infectious Disease History Infectious Disease History: Reports: Chicken Pox - Past Surgical History GI Surgical History: Reports: Colonoscopy Neurological Surgical History: Reports: None Social & Family History - Family History Family Medical History: Noncontributory OBGYN: Reports: Oncologic: Reports: Prostate - Tobacco Use Smoking Status *Q: Never Smoker Second Hand Smoke Exposure: No - Caffeine Use Caffeine Use: Reports: None - Recreational Drug Use Recreational Drug Use: No - Living Situation & Occupation Living situation: Reports: H&P Review of Systems - Review of Systems: Review Of Systems: See Below General: Reports: Weakness, Fatigue HEENT: Reports: No Symptoms Pulmonary: Reports: No Symptoms Cardiovascular: Reports: No Symptoms Gastrointestinal: Reports: No Symptoms Genitourinary: Reports: No Symptoms Musculoskeletal: Reports: No Symptoms Skin: Reports: No Symptoms Psychiatric: Reports: No Symptoms Neurological: Reports: Syncope Hematologic/Lymphatic: Reports: No Symptoms Immunologic: Reports: No Symptoms Exam - Exam Exam: See Below - Vital Signs Vital Signs: Last Vital Signs Temp 36.8 C 12/08/18 16:24 Pulse 87 12/08/18 17:50 Resp 18 12/08/18 17:50 BP 100/57 L 12/08/18 17:50 Pulse Ox 98 12/08/18 17:50 Weight: 49.583 kg - Exam General: Alert, Oriented, 4 HEENT: PERRLA, Hearing Intact, Mucosa Moist & [place], Nares Patent, Normal Nasal Septum, Posterior Pharynx Clear, Conjunctiva Clear, EOMI, EACs Clear, TMs Clear Neck: Supple, Trachea Midline, 2 Lungs: Clear to Auscultation, Normal Respiratory Effort Cardiovascular: Regular Rate Back Exam: Normal Inspection, Full Range of Motion, NT Extremities: Normal Inspection, Normal Range of Motion, Non-Tender, No Pedal Edema, Normal Capillary Refill Peripheral Pulses: 2+: Dorsalis Pedis (L), Dorsalis Pedis (R) Skin: Warm, Dry, Intact Psychiatric: Alert, Normal Affect, Normal Mood - Patient Data Lab Results Last 24 hrs: Laboratory Results - last 24 hr 12/08/18 12/08/18 Range/Units 16:28 16:28 WBC 10.14 (4.0-11.0) K/uL RBC 3.96 L (4.30-5.90) M/uL Hgb 11.5 L (12.0-16.0) g/dL Hct 35.2 L (36.0-46.0) % MCV 88.9 (80.0-98.0) fL MCH 29.0 (27.0-32.0) pg MCHC 32.7 (31.0-37.0) g/dL RDW Std Deviation 48.6 (28.0-62.0) fl RDW Coeff of [place] 15 (11.0-15.0) % Plt Count 455 H (150-400) K/uL MPV 8.30 (7.40-12.00) fL Neut % (Auto) 70.6 (48.0-80.0) % Lymph % (Auto) 22.5 (16.0-40.0) % [place] % (Auto) 6.2 (0.0-15.0) % Eos % (Auto) 0.6 (0.0-7.0) % Baso % (Auto) 0.1 (0.0-1.5) % Neut # (Auto) 7.2 H (1.4-5.7) K/uL Lymph # (Auto) 2.3 (0.6-2.4) K/uL [place] # (Auto) 0.6 (0.0-0.8) K/uL Eos # (Auto) 0.1 (0.0-0.7) K/uL Baso # (Auto) 0.0 (0.0-0.1) K/uL Nucleated RBC % 0.0 /100WBC Nucleated RBCs # 0 K/uL Sodium 140 (136-145) mmol/L Potassium 3.1 L (3.5-5.1) mmol/L Chloride 106 (98-107) mmol/L Carbon Dioxide 24.6 (21.0-32.0) mmol/L BUN 7 (7.0-18.0) mg/dL Creatinine 0.7 (0.6-1.0) mg/dL Est Cr Clr Drug Dosing TNP Estimated GFR (MDRD) > 60.0 ml/min Glucose 106 (74-106) mg/dL Calcium 8.0 L (8.5-10.1) mg/dL Total Bilirubin 0.2 (0.2-1.0) mg/dL AST 16 (15-37) IU/L ALT 14 (14-63) IU/L Alkaline Phosphatase 169 H (46-116) U/L Total Protein 6.1 L (6.4-8.2) g/dL Albumin 1.4 L (3.4-5.0) g/dL Globulin 4.7 H (2.6-4.0) g/dL Albumin/Globulin Ratio 0.3 L (0.9-1.6) Lipase 159 (73-393) U/L Result Diagrams: 12/08/18 16:28 12/08/18 16:28 Problem List Initiated/Reviewed/Updated: Yes Orders Last 24hrs: Active Orders 24 hr Category Date Time Status Patient Status [ADT] Stat ADT 12/08/18 17:18 Active Antiembolic Devices [RC] PER UNIT ROUTINE Care 12/08/18 18:24 Ordered Cardiac Monitoring [RC] CONTINUOUS Care 12/08/18 18:24 Ordered EKG Documentation Completion [RC] STAT Care 12/08/18 16:31 Active Oxygen Therapy [RC] PRN Care 12/08/18 18:23 Ordered Up With Assistance [RC] ASDIRECTED Care 12/08/18 18:23 Ordered VTE/DVT Education [RC] PER UNIT ROUTINE Care 12/08/18 18:23 Ordered Vital Signs [RC] Q4H Care 12/08/18 18:23 Ordered Regular Diet [DIET] Diet 12/08/18 Breakfast Ordered COMPREHENSIVE METABOLIC PN,CMP [CHEM] AM Lab 12/09/18 05:11 Ordered FOLIC ACID [CHEM] Routine Lab 12/08/18 18:25 Ordered MAGNESIUM [CHEM] Routine Lab 12/08/18 18:21 Ordered PHOSPHORUS [CHEM] Routine Lab 12/08/18 18:21 Ordered TROPONIN I [CHEM] Stat Lab 12/08/18 18:22 Ordered UA W/MICROSCOPIC [URIN] Stat Lab 12/08/18 16:34 Ordered VITAMIN B12 [CHEM] Routine Lab 12/08/18 18:25 Ordered Acetaminophen [Tylenol] Med 12/08/18 18:23 Ordered 650 mg PO Q4H PRN Albumin Human 5% @ 125 MLS/HR x 1(250ml) Med 12/08/18 18:30 Ordered Albumin 5% [Buminate 5%] 250 ml IV Q2H Sodium Chloride 0.9% @ 125 MLS/HR (1000ml) Med 12/08/18 18:30 Ordered Sodium Chloride 0.9% [Normal Saline] 1,000 ml IV ASDIRECTED Sodium Chloride 0.9% [Normal Saline] 1,000 ml Med 12/08/18 17:33 Active IV .Bolus Sequential Compression Device [OM.PC] Per Unit Routine Oth 12/08/18 18:24 Ordered Resuscitation Status Routine Resus Stat 12/08/18 18:23 Ordered Medication Orders Acetaminophen (Tylenol) 650 mg PO Q4H PRN PRN Reason: Pain (Mild 1-3)/fever Sodium Chloride (Normal Saline) 1,000 mls @ 999 mls/hr IV .Bolus ONE Stop: 12/08/18 18:33 Last Admin: 12/08/18 17:41 Dose: 999 mls/hr Albumin Human (Buminate 5%) 250 mls @ 125 mls/hr IV Q2H VALERIE Stop: 12/08/18 22:29 Sodium Chloride (Normal Saline) 1,000 mls @ 125 mls/hr IV ASDIRECTED [facility] Assessment/Plan Comment:: Assessment: #1. Syncope #2. Hypotension #3. Hypoalbuminemia #4. History of Ulcerative Colitis #5. Normocytic anemia #6. Hypokalemia Plan: #1. Admit for observation. Vitals per floor. #2. IV albumin 5% #3. IVNS 125ml/h #4. Replace potassium #5. phosphate, magnesium, folic acid, b12 #6. Discussed with the patient that she needs to initiate protein in her diet. 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
[2018-12-08] MEDS: Sodium Chloride 0.9% 1,000 ML IV SCH (18:48)
[2018-12-08] MEDS: Albumin 5% 250 ML IV SCH ×2 (21:08→21:37)
[2018-12-08] MEDS: Acetaminophen 325 MG Tab PO PRN (23:49)
[2018-12-09] MEDS ORDERED: Albumin 5% 250 ML IV ONE
[2018-12-09] MEDS: Levofloxacin/Dextrose 5%-Water 750 MG in Premix Bag 1 BAG IV SCH (02:50)
[2018-12-09 07:06] LABS: SODIUM,NA 143 mmol/L (136-145)
[2018-12-09 07:07] LABS: CHLORIDE,CL 114 mmol/L (98-107)
[2018-12-09] MEDS ORDERED: Calcium Carbonate 500 MG Tab.Chew PO ONE (07:38)
[2018-12-09] MEDS: Sodium Chloride 0.9% 1,000 ML IV SCH ×2 (08:20→20:15)
[2018-12-09] MEDS: metroNIDAZOLE/Normal Saline 500 MG in Premix Bag 1 BAG IV SCH ×3 (10:37→17:58)
--- NOTE | 2018-12-09 14:57 | CR ---
EXAMINATION: Two-view chest (PA and Lateral views). HISTORY: Fever. FINDINGS: The trachea is midline. The cardiomediastinal silhouette is within normal limits. Mild left basilar atelectasis and/or infiltrate. No significant pleural effusion or pneumothorax. Osseous structures appear unremarkable. IMPRESSION: 1. Mild left basilar atelectasis and/or infiltrate, new in comparison to the previous examination.
--- NOTE | 2018-12-09 15:32 | PCM.PN ---
- General Info Date of Service: 12/09/18 Subjective Update: Had a fever over night. Levaquin was started by attending. No further syncopal episodes. She denies any cough sob. However, she has a mild, intermittent LLQ pain. No diarrhea, abdominal pain elsewhere, nausea or vomiting. No constipation. No blood in stool. - Review of Systems General: Reports: Other (see hpi) - Patient Data Vitals - Most Recent: Last Vital Signs Temp 36.3 C 12/09/18 12:00 Pulse 88 12/09/18 12:00 Resp 16 12/09/18 12:00 BP 96/62 12/09/18 12:00 Pulse Ox 100 12/09/18 12:00 Weight - Most Recent: 49.583 kg I&O - Last 24 Hours: Intake & Output 12/09/18 12/09/18 12/09/18 06:59 14:59 22:59 Intake Total 2432 Output Total 800 Balance 1632 Lab Results Last 24 Hours: Laboratory Results - last 24 hr 12/08/18 12/08/18 12/08/18 Range/Units 16:28 16:28 18:45 WBC 10.14 (4.0-11.0) K/uL RBC 3.96 L (4.30-5.90) M/uL Hgb 11.5 L (12.0-16.0) g/dL Hct 35.2 L (36.0-46.0) % MCV 88.9 (80.0-98.0) fL MCH 29.0 (27.0-32.0) pg MCHC 32.7 (31.0-37.0) g/dL RDW Std Deviation 48.6 (28.0-62.0) fl RDW Coeff of [place] 15 (11.0-15.0) % Plt Count 455 H (150-400) K/uL MPV 8.30 (7.40-12.00) fL Neut % (Auto) 70.6 (48.0-80.0) % Lymph % (Auto) 22.5 (16.0-40.0) % [place] % (Auto) 6.2 (0.0-15.0) % Eos % (Auto) 0.6 (0.0-7.0) % Baso % (Auto) 0.1 (0.0-1.5) % Neut # (Auto) 7.2 H (1.4-5.7) K/uL Lymph # (Auto) 2.3 (0.6-2.4) K/uL [place] # (Auto) 0.6 (0.0-0.8) K/uL Eos # (Auto) 0.1 (0.0-0.7) K/uL Baso # (Auto) 0.0 (0.0-0.1) K/uL Add Manual Diff Neutrophils % (Manual) (48.0-80.0) % Lymphocytes % (Manual) (16.0-40.0) % Monocytes % (Manual) (0.0-15.0) % Nucleated RBC % 0.0 /100WBC Absolute Seg Neuts (1.4-5.7) Lymphocytes # (Manual) (0.6-2.4) Monocytes # (Manual) (0.0-0.8) Nucleated RBCs # 0 K/uL Sodium 140 (136-145) mmol/L Potassium 3.1 L (3.5-5.1) mmol/L Chloride 106 (98-107) mmol/L Carbon Dioxide 24.6 (21.0-32.0) mmol/L BUN 7 (7.0-18.0) mg/dL Creatinine 0.7 (0.6-1.0) mg/dL Est Cr Clr Drug Dosing TNP Estimated GFR (MDRD) > 60.0 ml/min Glucose 106 (74-106) mg/dL Calcium 8.0 L (8.5-10.1) mg/dL Phosphorus 2.6 (2.6-4.7) mg/dL Magnesium 1.8 (1.8-2.4) mg/dL Total Bilirubin 0.2 (0.2-1.0) mg/dL AST 16 (15-37) IU/L ALT 14 (14-63) IU/L Alkaline Phosphatase 169 H (46-116) U/L Troponin I < 0.050 (0.000-0.056) ng/mL Total Protein 6.1 L (6.4-8.2) g/dL Albumin 1.4 L (3.4-5.0) g/dL Globulin 4.7 H (2.6-4.0) g/dL Albumin/Globulin Ratio 0.3 L (0.9-1.6) Lipase 159 (73-393) U/L Vitamin B12 1190 H (193-986) pg/mL Folate 9.00 (8.60-58.90) ng/mL HCG, Qual (NEG) Urine Color Urine Appearance Urine pH (5.0-8.0) Ur Specific [place] (1.001-1.035) Urine Protein (NEGATIVE) mg/dL Urine Glucose (UA) (NEGATIVE) mg/dL Urine Ketones (NEGATIVE) mg/dL Urine Occult Blood (NEGATIVE) Urine Nitrite (NEGATIVE) Urine Bilirubin (NEGATIVE) Urine Urobilinogen (<2.0) EU/dL Ur Leukocyte Esterase (NEGATIVE) Urine RBC (0-2/HPF) Urine WBC (0-5/HPF) Ur Epithelial Cells (NONE-FEW) Urine Bacteria (NEGATIVE) 12/08/18 12/09/18 12/09/18 Range/Units 23:55 04:48 08:19 WBC 10.82 (4.0-11.0) K/uL RBC 3.12 L (4.30-5.90) M/uL Hgb 8.7 L (12.0-16.0) g/dL Hct 27.8 L (36.0-46.0) % MCV 89.1 (80.0-98.0) fL MCH 27.9 (27.0-32.0) pg MCHC 31.3 (31.0-37.0) g/dL RDW Std Deviation 49.6 (28.0-62.0) fl RDW Coeff of [place] 15 (11.0-15.0) % Plt Count 340 (150-400) K/uL MPV 8.20 (7.40-12.00) fL Neut % (Auto) (48.0-80.0) % Lymph % (Auto) (16.0-40.0) % [place] % (Auto) (0.0-15.0) % Eos % (Auto) (0.0-7.0) % Baso % (Auto) (0.0-1.5) % Neut # (Auto) (1.4-5.7) K/uL Lymph # (Auto) (0.6-2.4) K/uL [place] # (Auto) (0.0-0.8) K/uL Eos # (Auto) (0.0-0.7) K/uL Baso # (Auto) (0.0-0.1) K/uL Add Manual Diff YES Neutrophils % (Manual) 86 H (48.0-80.0) % Lymphocytes % (Manual) 10 L (16.0-40.0) % Monocytes % (Manual) 4 (0.0-15.0) % Nucleated RBC % 0.0 /100WBC Absolute Seg Neuts 9.3 H (1.4-5.7) Lymphocytes # (Manual) 1.1 (0.6-2.4) Monocytes # (Manual) 0.4 (0.0-0.8) Nucleated RBCs # 0 K/uL Sodium 143 (136-145) mmol/L Potassium 3.5 (3.5-5.1) mmol/L Chloride 114 H (98-107) mmol/L Carbon Dioxide 21.7 (21.0-32.0) mmol/L BUN 4 L (7.0-18.0) mg/dL Creatinine 0.6 (0.6-1.0) mg/dL Est Cr Clr Drug Dosing 95.61 Estimated GFR (MDRD) > 60.0 ml/min Glucose 87 (74-106) mg/dL Calcium 7.3 L (8.5-10.1) mg/dL Phosphorus (2.6-4.7) mg/dL Magnesium (1.8-2.4) mg/dL Total Bilirubin 0.3 (0.2-1.0) mg/dL AST 8 L (15-37) IU/L ALT 7 L (14-63) IU/L Alkaline Phosphatase 95 (46-116) U/L Troponin I (0.000-0.056) ng/mL Total Protein 4.3 L (6.4-8.2) g/dL Albumin 1.5 L (3.4-5.0) g/dL Globulin 2.8 (2.6-4.0) g/dL Albumin/Globulin Ratio 0.5 L (0.9-1.6) Lipase (73-393) U/L Vitamin B12 (193-986) pg/mL Folate (8.60-58.90) ng/mL HCG, Qual (NEG) Urine Color YELLOW Urine Appearance CLEAR Urine pH 7.5 (5.0-8.0) Ur Specific [place] 1.015 (1.001-1.035) Urine Protein NEGATIVE (NEGATIVE) mg/dL Urine Glucose (UA) NEGATIVE (NEGATIVE) mg/dL Urine Ketones NEGATIVE (NEGATIVE) mg/dL Urine Occult Blood NEGATIVE (NEGATIVE) Urine Nitrite NEGATIVE (NEGATIVE) Urine Bilirubin NEGATIVE (NEGATIVE) Urine Urobilinogen 0.2 (<2.0) EU/dL Ur Leukocyte Esterase TRACE H (NEGATIVE) Urine RBC 0-1 (0-2/HPF) Urine WBC 0-2 (0-5/HPF) Ur Epithelial Cells RARE (NONE-FEW) Urine Bacteria RARE (NEGATIVE) 12/09/18 Range/Units 08:19 WBC (4.0-11.0) K/uL RBC (4.30-5.90) M/uL Hgb (12.0-16.0) g/dL Hct (36.0-46.0) % MCV (80.0-98.0) fL MCH (27.0-32.0) pg MCHC (31.0-37.0) g/dL RDW Std Deviation (28.0-62.0) fl RDW Coeff of [place] (11.0-15.0) % Plt Count (150-400) K/uL MPV (7.40-12.00) fL Neut % (Auto) (48.0-80.0) % Lymph % (Auto) (16.0-40.0) % [place] % (Auto) (0.0-15.0) % Eos % (Auto) (0.0-7.0) % Baso % (Auto) (0.0-1.5) % Neut # (Auto) (1.4-5.7) K/uL Lymph # (Auto) (0.6-2.4) K/uL [place] # (Auto) (0.0-0.8) K/uL Eos # (Auto) (0.0-0.7) K/uL Baso # (Auto) (0.0-0.1) K/uL Add Manual Diff Neutrophils % (Manual) (48.0-80.0) % Lymphocytes % (Manual) (16.0-40.0) % Monocytes % (Manual) (0.0-15.0) % Nucleated RBC % /100WBC Absolute Seg Neuts (1.4-5.7) Lymphocytes # (Manual) (0.6-2.4) Monocytes # (Manual) (0.0-0.8) Nucleated RBCs # K/uL Sodium (136-145) mmol/L Potassium (3.5-5.1) mmol/L Chloride (98-107) mmol/L Carbon Dioxide (21.0-32.0) mmol/L BUN (7.0-18.0) mg/dL Creatinine (0.6-1.0) mg/dL Est Cr Clr Drug Dosing Estimated GFR (MDRD) ml/min Glucose (74-106) mg/dL Calcium (8.5-10.1) mg/dL Phosphorus (2.6-4.7) mg/dL Magnesium (1.8-2.4) mg/dL Total Bilirubin (0.2-1.0) mg/dL AST (15-37) IU/L ALT (14-63) IU/L Alkaline Phosphatase (46-116) U/L Troponin I (0.000-0.056) ng/mL Total Protein (6.4-8.2) g/dL Albumin (3.4-5.0) g/dL Globulin (2.6-4.0) g/dL Albumin/Globulin Ratio (0.9-1.6) Lipase (73-393) U/L Vitamin B12 (193-986) pg/mL Folate (8.60-58.90) ng/mL HCG, Qual NEGATIVE (NEG) Urine Color Urine Appearance Urine pH (5.0-8.0) Ur Specific [place] (1.001-1.035) Urine Protein (NEGATIVE) mg/dL Urine Glucose (UA) (NEGATIVE) mg/dL Urine Ketones (NEGATIVE) mg/dL Urine Occult Blood (NEGATIVE) Urine Nitrite (NEGATIVE) Urine Bilirubin (NEGATIVE) Urine Urobilinogen (<2.0) EU/dL Ur Leukocyte Esterase (NEGATIVE) Urine RBC (0-2/HPF) Urine WBC (0-5/HPF) Ur Epithelial Cells (NONE-FEW) Urine Bacteria (NEGATIVE) Amandeep Results Last 24 Hours: Microbiology 12/08/18 23:56 Anaerobic Blood Culture - Final Blood - Venous - Lab Draw 12/08/18 23:45 Anaerobic Blood Culture - Final Blood - Venous Med Orders - Current: Current Medications Acetaminophen (Tylenol) 650 mg PO Q4H PRN PRN Reason: Pain (Mild 1-3)/fever Last Admin: 12/08/18 23:49 Dose: 650 mg Sodium Chloride (Normal Saline) 1,000 mls @ 125 mls/hr IV ASDIRECTED [facility] Last Admin: 12/09/18 08:20 Dose: 125 mls/hr Levofloxacin/Dextrose 750 mg/ (Premix) 150 mls @ 100 mls/hr IV Q24H [facility] Last Admin: 12/09/18 02:50 Dose: Not Given Metronidazole 500 mg/ Premix 100 mls @ 100 mls/hr IV QID [facility] Last Admin: 12/09/18 12:39 Dose: 100 mls/hr Discontinued Medications Calcium Carbonate/Glycine (Tums) 1,000 mg PO ONETIME ONE Stop: 12/09/18 07:39 Last Admin: 12/09/18 08:19 Dose: 1,000 mg Sodium Chloride (Normal Saline) 1,000 mls @ 999 mls/hr IV BOLUS ONE Stop: 12/08/18 17:22 Last Admin: 12/08/18 16:36 Dose: 999 mls/hr Sodium Chloride (Normal Saline) 1,000 mls @ 999 mls/hr IV .Bolus ONE Stop: 12/08/18 18:33 Last Admin: 12/08/18 17:41 Dose: 999 mls/hr Albumin Human (Buminate 5%) 250 mls @ 125 mls/hr IV Q2H [facility] Stop: 12/08/18 22:29 Last Admin: 12/08/18 21:37 Dose: Not Given Albumin Human (Buminate 5%) 250 mls @ 125 mls/hr IV ONETIME ONE Stop: 12/09/18 01:59 Last Admin: 12/08/18 23:44 Dose: 125 mls/hr Ondansetron HCl (Zofran) 4 mg IVPUSH ONETIME ONE Stop: 12/08/18 16:23 Last Admin: 12/08/18 16:37 Dose: Not Given Potassium Chloride (Klor-Con M20) 40 meq PO ONETIME ONE Stop: 12/08/18 18:22 Last Admin: 12/08/18 18:47 Dose: 40 meq - Exam General: Alert HEENT: Pupils Equal, Pupils Reactive, EOMI, Mucous Membr. Moist/[place] Neck: Supple Lungs: Clear to Auscultation, Normal Respiratory Effort Cardiovascular: Regular Rate, Regular Rhythm GI/Abdominal Exam: Normal Bowel Sounds, Soft, Non-Tender, No Organomegaly, No Distention, No Abnormal Bruit, No Mass Back Exam: Normal Inspection, Full Range of Motion Extremities: Normal Inspection, Normal Range of Motion, Non-Tender, No Pedal Edema, Normal Capillary Refill - Problem List Review Problem List Initiated/Reviewed/Updated: Yes - My Orders Last 24 Hours: My Active Orders 12/08/18 17:57 Telemetry Monitoring [Cardiac Monitoring] [RC] Q8H 12/08/18 18:23 Oxygen Therapy [RC] PRN Up With Assistance [RC] ASDIRECTED VTE/DVT Education [RC] PER UNIT ROUTINE Vital Signs [RC] Q4H Acetaminophen [Tylenol] 650 mg PO Q4H PRN Resuscitation Status Routine 12/08/18 18:24 Antiembolic Devices [RC] PER UNIT ROUTINE Sequential Compression Device [OM.PC] Per Unit Routine 12/08/18 18:30 Sodium Chloride 0.9% [Normal Saline] 1,000 ml IV ASDIRECTED - Plan Plan:: Assessment: #1. Syncope #2. Hypotension #3. Hypoalbuminemia #4. History of Ulcerative Colitis #5. Normocytic anemia #6. Hypokalemia #7. L Lung pneumonia #8. LLQ abdominal pain Plan: #1. CXR shows a L lung pneumonia - will continue Levaquin #2. LLQ abdominal pain given clinical history can be the source of her fever. Discussed with the patient about treating this with IV antibiotics. Patient prefers to go without CT scan and start treating it with IV flagyl. Will obtain a CT if patient has a fever again.
[2018-12-09] MEDS: Acetaminophen 325 MG Tab PO PRN (20:38)
[2018-12-10] MEDS: metroNIDAZOLE/Normal Saline 500 MG in Premix Bag 1 BAG IV SCH ×4 (01:30→18:24)
[2018-12-10 05:42] LABS: CHLORIDE,CL 111 mmol/L (98-107); SODIUM,NA 141 mmol/L (136-145)
[2018-12-10] MEDS: Sodium Chloride 0.9% 1,000 ML IV SCH ×2 (06:13→17:31)
[2018-12-10] MEDS ORDERED: Potassium Chloride 20 MEQ Tab.ER PO ONE (08:36)
[2018-12-10] MEDS ORDERED: Iopamidol 755 MG/ML 500 ML Multipack Bottle IVPUSH ONE (10:06)
--- NOTE | 2018-12-10 10:21 | CT ---
CT of the abdomen and pelvis with contrast. HISTORY: Pain TECHNIQUE: Axial CT images were obtained of the abdomen and pelvis following administration of 75 mL of Isovue-370 in the left antecubital fossa without complication. Coronal and sagittal reconstructions obtained. FINDINGS: Trace left pleural effusion with adjacent atelectasis. Mild focal fatty infiltration near the falciform ligament. The spleen, adrenal glands, and pancreas appear normal. No bulky retroperitoneal lymphadenopathy or abdominal ascites. The kidneys enhance and function symmetrically without evidence of obstructive uropathy. There is a small amount of free pelvic fluid. There is a small 2.0 x 2.0 cm collection adjacent to the sigmoid colon with underlying wall thickening. There is moderate adjacent stranding as well. There is no diverticula noted within this region however there is mild previous wall thickening also within this region on a prior CT. Urinary bladder appears normal. No bulky pelvic lymphadenopathy. No suspicious osseous abnormalities identified. Hemangioma noted within the T10 vertebral body. IMPRESSION: 1. Small colonic perforation noted within the sigmoid colon with a small 2 cm developing abscess. There is a small amount of free pelvic fluid also noted. 2. There is underlying colonic wall thickening, this likely represents an inflammatory (such as ulcerative colitis) or infectious etiology. Given the long segment this is unlikely neoplastic and no diverticula are identified. 3. Trace left pleural effusion.
--- NOTE | 2018-12-10 13:31 | PCM.PN ---
- General Info Date of Service: 12/10/18 Subjective Update: Max temp of 38.8 last night. However, feels comfortable. Actually says her abdominal pain has gotten better. No sob/cough/chills/nausea. Denies blood in stool. - Review of Systems General: Reports: Other (see hpi) - Patient Data Vitals - Most Recent: Last Vital Signs Temp 36.9 C 12/10/18 12:00 Pulse 83 12/10/18 12:00 Resp 22 H 12/10/18 12:00 BP 104/76 12/10/18 12:00 Pulse Ox 100 12/10/18 12:00 Weight - Most Recent: 49.583 kg I&O - Last 24 Hours: Intake & Output 12/09/18 12/10/18 12/10/18 22:59 06:59 14:59 Intake Total 2073 1542 200 Output Total 1000 1400 Balance 1073 142 200 Lab Results Last 24 Hours: Laboratory Results - last 24 hr 12/10/18 12/10/18 12/10/18 Range/Units 04:50 04:50 04:50 WBC 7.69 (4.0-11.0) K/uL RBC 2.82 L (4.30-5.90) M/uL Hgb 7.8 L (12.0-16.0) g/dL Hct 25.0 L (36.0-46.0) % MCV 88.7 (80.0-98.0) fL MCH 27.7 (27.0-32.0) pg MCHC 31.2 (31.0-37.0) g/dL RDW Std Deviation 49.0 (28.0-62.0) fl RDW Coeff of [place] 15 (11.0-15.0) % Plt Count 317 (150-400) K/uL MPV 8.10 (7.40-12.00) fL Neut % (Auto) 75.7 (48.0-80.0) % Lymph % (Auto) 14.4 L (16.0-40.0) % [place] % (Auto) 9.5 (0.0-15.0) % Eos % (Auto) 0.3 (0.0-7.0) % Baso % (Auto) 0.1 (0.0-1.5) % Neut # (Auto) 5.8 H (1.4-5.7) K/uL Lymph # (Auto) 1.1 (0.6-2.4) K/uL [place] # (Auto) 0.7 (0.0-0.8) K/uL Eos # (Auto) 0.0 (0.0-0.7) K/uL Baso # (Auto) 0.0 (0.0-0.1) K/uL Nucleated RBC % 0.0 /100WBC Nucleated RBCs # 0 K/uL ESR 38 H (0-19) mm/hr Sodium 141 (136-145) mmol/L Potassium 3.4 L (3.5-5.1) mmol/L Chloride 111 H (98-107) mmol/L Carbon Dioxide 18.2 L (21.0-32.0) mmol/L BUN 5 L (7.0-18.0) mg/dL Creatinine 0.6 (0.6-1.0) mg/dL Est Cr Clr Drug Dosing 95.61 mL/min Estimated GFR (MDRD) > 60.0 ml/min Glucose 77 (74-106) mg/dL Calcium 7.6 L (8.5-10.1) mg/dL Amandeep Results Last 24 Hours: Microbiology 12/08/18 23:56 Aerobic Blood Culture - Preliminary Blood - Venous - Lab Draw NO GROWTH AFTER 1 DAY Anaerobic Blood Culture - Final 12/08/18 23:45 Aerobic Blood Culture - Preliminary Blood - Venous NO GROWTH AFTER 1 DAY Anaerobic Blood Culture - Final Med Orders - Current: Current Medications Acetaminophen (Tylenol) 650 mg PO Q4H PRN PRN Reason: Pain (Mild 1-3)/fever Last Admin: 12/09/18 20:38 Dose: 650 mg Sodium Chloride (Normal Saline) 1,000 mls @ 125 mls/hr IV ASDIRECTED [facility] Last Admin: 12/10/18 06:13 Dose: 125 mls/hr Levofloxacin/Dextrose 750 mg/ (Premix) 150 mls @ 100 mls/hr IV Q24H [facility] Last Admin: 12/10/18 00:00 Dose: 100 mls/hr Metronidazole 500 mg/ Premix 100 mls @ 100 mls/hr IV QID [facility] Last Admin: 12/10/18 12:39 Dose: 100 mls/hr Discontinued Medications Calcium Carbonate/Glycine (Tums) 1,000 mg PO ONETIME ONE Stop: 12/09/18 07:39 Last Admin: 12/09/18 08:19 Dose: 1,000 mg Sodium Chloride (Normal Saline) 1,000 mls @ 999 mls/hr IV BOLUS ONE Stop: 12/08/18 17:22 Last Admin: 12/08/18 16:36 Dose: 999 mls/hr Sodium Chloride (Normal Saline) 1,000 mls @ 999 mls/hr IV .Bolus ONE Stop: 12/08/18 18:33 Last Admin: 12/08/18 17:41 Dose: 999 mls/hr Albumin Human (Buminate 5%) 250 mls @ 125 mls/hr IV Q2H [facility] Stop: 12/08/18 22:29 Last Admin: 12/08/18 21:37 Dose: Not Given Albumin Human (Buminate 5%) 250 mls @ 125 mls/hr IV ONETIME ONE Stop: 12/09/18 01:59 Last Admin: 12/08/18 23:44 Dose: 125 mls/hr Iopamidol (Isovue Multipack-370 (76%)) 75 ml IVPUSH ONETIME ONE Stop: 12/10/18 10:07 Last Admin: 12/10/18 10:06 Dose: 75 ml Ondansetron HCl (Zofran) 4 mg IVPUSH ONETIME ONE Stop: 12/08/18 16:23 Last Admin: 12/08/18 16:37 Dose: Not Given Potassium Chloride (Klor-Con M20) 40 meq PO ONETIME ONE Stop: 12/08/18 18:22 Last Admin: 12/08/18 18:47 Dose: 40 meq Potassium Chloride (Klor-Con M20) 20 meq PO ONETIME ONE Stop: 12/10/18 08:37 Last Admin: 12/10/18 10:11 Dose: 20 meq - Exam General: Alert, Oriented Lungs: Clear to Auscultation, Normal Respiratory Effort Cardiovascular: Regular Rate, Regular Rhythm GI/Abdominal Exam: Normal Bowel Sounds, Soft, Non-Tender, No Organomegaly, No Distention, No Abnormal Bruit, No Mass Back Exam: Normal Inspection, Full Range of Motion Extremities: Normal Inspection, Normal Range of Motion, Non-Tender, No Pedal Edema, Normal Capillary Refill Peripheral Pulses: 2+: Dorsalis Pedis (L), Dorsalis Pedis (R) Skin: Warm, Dry, Intact Psy/Mental Status: Alert, Normal Affect, Normal Mood - Problem List Review Problem List Initiated/Reviewed/Updated: Yes - My Orders Last 24 Hours: My Active Orders 12/10/18 07:44 CULTURE STOOL + CAMPY+SHIGATOX [RM] Stat OCCULT BLOOD DIAGNOSTIC [OP] Routine 12/10/18 12:32 Notify Provider Consults [RC] ASDIRECTED Consult to Physician [CONS] Routine 12/10/18 13:00 HEMOGLOBIN/HEMATOCRIT,HH [HEME] Routine 12/10/18 Dinner NPO [Nothing Per Oral Diet] [DIET] 12/11/18 05:11 BASIC METABOLIC PANEL,BMP [CHEM] AM CBC WITH AUTO DIFF [HEME] AM 12/12/18 05:11 BASIC METABOLIC PANEL,BMP [CHEM] AM CBC WITH AUTO DIFF [HEME] AM - Plan Plan:: Assessment: #1. Syncope #2. Hypotension #3. Hypoalbuminemia #4. History of Ulcerative Colitis #5. Normocytic anemia #6. Hypokalemia #7. L Lung pneumonia #8. LLQ abdominal pain Plan: #1. Obtained CT due to reoccuring fever which shows a small sigmoid colon perforation and a small 2cm developing abscess. These findings were discussed with GI in [facility] who recommended that she should be continued to be treated medically for now. If she was to acutely worsen, or develop signs of peritonitis, a surgical evaluation should occur. #2. Our general surgeon has also been consulted, who agrees with medical management for now. #3. CBC, BMP, ESR tomorrow AM #4. Continue levaquin, flagyl #5. NPO
--- NOTE | 2018-12-10 15:45 | PCM.CONS ---
H&P History of Present Illness - General Date of Service: 12/10/18 Admit Problem/Dx: Admission Diagnosis/Problem Admission Diagnosis/Problem Ulcerative colitis Source of Information: Patient History Limitations: Reports: No Limitations - History of Present Illness Initial Comments - Free Text/Narative: Patient is a 43-year-old female who was recently diagnosed with ulcerative colitis. I along with the medicine team diagnosed her in 08/2018. She was placed on a prednisone taper and was advised to f/u with GI. GI recommended a biologic agent which she refused because of side effects concern. She finished the prednisone taper, and bloody stools had subsided since then. She doesn't have any abdominal pain, but presented the emergency room with weakness and syncopal episodes. She underwent a chest x-ray that showed atelectasis. She started complaining of left lower quadrant pain. A CT the abdomen and pelvis was performed that showed sigmoid colon thickening with a 2 cm abscess adjacent to the lateral wall of the sigmoid colon concerning for perforation. There is a trace amount of free pelvic fluid. She was given IV antibiotics and is feeling better. The pain is almost gone now. Her WBC is normal. Her vitals are normal. I asked the medicine team to discuss her case with her doctors in [place]. They have recommended conservative management. - Related Data Allergies/Adverse Reactions: Allergies Allergy/AdvReac Type Severity Reaction Status Date / Time No Known Allergies Allergy Verified 12/08/18 16:30 Home Medications: Home Meds . 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 Denies: Diabetes, Type II, Hypothyroidism Hematologic History: Reports: Anemia - Infectious Disease History Infectious Disease History: Reports: Chicken Pox - Past Surgical History GI Surgical History: Reports: Colonoscopy Neurological Surgical History: Reports: None Social & Family History - Family History Family Medical History: Noncontributory OBGYN: Reports: Oncologic: Reports: Prostate - Tobacco Use Smoking Status *Q: Never Smoker Second Hand Smoke Exposure: No - Caffeine Use Caffeine Use: Reports: None - Recreational Drug Use Recreational Drug Use: No - Living Situation & Occupation Living situation: Reports: H&P Review of Systems - Review of Systems: Review Of Systems: ROS reveals no pertinent complaints other than HPI. Exam - Exam Exam: See Below - Vital Signs Vital Signs: Last Vital Signs Temp 36.9 C 12/10/18 12:00 Pulse 83 12/10/18 12:00 Resp 22 H 12/10/18 12:00 BP 104/76 12/10/18 12:00 Pulse Ox 100 12/10/18 12:00 Weight: 49.583 kg - Exam General: Alert, Oriented, Cooperative HEENT: Conjunctiva Clear, Mucosa Moist & [place], Posterior Pharynx Clear Lungs: Normal Respiratory Effort Cardiovascular: Regular Rate GI/Abdominal Exam: Soft, Non-Tender, No Distention, No Mass Extremities: Normal Inspection - Patient Data Lab Results Last 24 hrs: Laboratory Results - last 24 hr 12/10/18 12/10/18 12/10/18 Range/Units 04:50 04:50 04:50 WBC 7.69 (4.0-11.0) K/uL RBC 2.82 L (4.30-5.90) M/uL Hgb 7.8 L (12.0-16.0) g/dL Hct 25.0 L (36.0-46.0) % MCV 88.7 (80.0-98.0) fL MCH 27.7 (27.0-32.0) pg MCHC 31.2 (31.0-37.0) g/dL RDW Std Deviation 49.0 (28.0-62.0) fl RDW Coeff of [place] 15 (11.0-15.0) % Plt Count 317 (150-400) K/uL MPV 8.10 (7.40-12.00) fL Neut % (Auto) 75.7 (48.0-80.0) % Lymph % (Auto) 14.4 L (16.0-40.0) % [place] % (Auto) 9.5 (0.0-15.0) % Eos % (Auto) 0.3 (0.0-7.0) % Baso % (Auto) 0.1 (0.0-1.5) % Neut # (Auto) 5.8 H (1.4-5.7) K/uL Lymph # (Auto) 1.1 (0.6-2.4) K/uL [place] # (Auto) 0.7 (0.0-0.8) K/uL Eos # (Auto) 0.0 (0.0-0.7) K/uL Baso # (Auto) 0.0 (0.0-0.1) K/uL Nucleated RBC % 0.0 /100WBC Nucleated RBCs # 0 K/uL ESR 38 H (0-19) mm/hr Sodium 141 (136-145) mmol/L Potassium 3.4 L (3.5-5.1) mmol/L Chloride 111 H (98-107) mmol/L Carbon Dioxide 18.2 L (21.0-32.0) mmol/L BUN 5 L (7.0-18.0) mg/dL Creatinine 0.6 (0.6-1.0) mg/dL Est Cr Clr Drug Dosing 95.61 mL/min Estimated GFR (MDRD) > 60.0 ml/min Glucose 77 (74-106) mg/dL Calcium 7.6 L (8.5-10.1) mg/dL 12/10/18 Range/Units 14:30 WBC (4.0-11.0) K/uL RBC (4.30-5.90) M/uL Hgb 8.9 L (12.0-16.0) g/dL Hct 28.1 L (36.0-46.0) % MCV (80.0-98.0) fL MCH (27.0-32.0) pg MCHC (31.0-37.0) g/dL RDW Std Deviation (28.0-62.0) fl RDW Coeff of [place] (11.0-15.0) % Plt Count (150-400) K/uL MPV (7.40-12.00) fL Neut % (Auto) (48.0-80.0) % Lymph % (Auto) (16.0-40.0) % [place] % (Auto) (0.0-15.0) % Eos % (Auto) (0.0-7.0) % Baso % (Auto) (0.0-1.5) % Neut # (Auto) (1.4-5.7) K/uL Lymph # (Auto) (0.6-2.4) K/uL [place] # (Auto) (0.0-0.8) K/uL Eos # (Auto) (0.0-0.7) K/uL Baso # (Auto) (0.0-0.1) K/uL Nucleated RBC % /100WBC Nucleated RBCs # K/uL ESR (0-19) mm/hr Sodium (136-145) mmol/L Potassium (3.5-5.1) mmol/L Chloride (98-107) mmol/L Carbon Dioxide (21.0-32.0) mmol/L BUN (7.0-18.0) mg/dL Creatinine (0.6-1.0) mg/dL Est Cr Clr Drug Dosing mL/min Estimated GFR (MDRD) ml/min Glucose (74-106) mg/dL Calcium (8.5-10.1) mg/dL Result Diagrams: 12/10/18 14:30 12/10/18 04:50 Amandeep Results Last 24 hrs: Microbiology 12/10/18 13:45 Campylobacter Antigen Assay - Final Stool / Feces NEGATIVE CAMPYLOBACTER AG REFERENCE RANGE: NEGATIVE 12/10/18 13:45 Stool Occult Blood (AMANDEEP) - Final Stool / Feces POSITIVE OCCULT BLOOD REFERENCE RANGE: NEGATIVE 12/08/18 23:56 Aerobic Blood Culture - Preliminary Blood - Venous - Lab Draw NO GROWTH AFTER 1 DAY Anaerobic Blood Culture - Final 12/08/18 23:45 Aerobic Blood Culture - Preliminary Blood - Venous NO GROWTH AFTER 1 DAY Anaerobic Blood Culture - Final Consult PN Assessment/Plan Procedures: Procedures AGENT NOS ASSAY W/OPTIC (08/25/18) ASSAY THYROID STIM HORMONE (12/06/18) BLOOD TYPING SEROLOGIC ABO (08/18/18) BLOOD TYPING SEROLOGIC RH(D) (08/18/18) C-REACTIVE PROTEIN (12/06/18) MERLY DNA DIR PROBE (08/16/18) CHORIONIC GONADOTROPIN TEST (08/10/18) CLOSTRIDIUM AG IA (08/25/18) COMPLETE CBC AUTOMATED (12/06/18) COMPLETE CBC W/AUTO DIFF WBC (10/13/18) COMPREHEN METABOLIC PANEL (12/06/18) CRYPTOSPORIDIUM AG IA (08/25/18) CT ABD & PELV W/CONTRAST (08/25/18) CULTURE SCREEN ONLY (04/22/16) EMERGENCY DEPT VISIT (08/18/18) TALAVERA VAG DNA DIR PROBE (08/16/18) GIARDIA AG IA (08/25/18) GLUCOSE TEST (03/13/16) GLUCOSE TOLERANCE TEST (GTT) (03/26/16) HPYLORI STOOL IA (08/25/18) HYDRATION IV INFUSION INIT (08/18/18) IRON BINDING TEST (12/06/18) LACTOFERRIN FECAL (QUAL) (08/25/18) METABOLIC PANEL TOTAL CA (10/13/18) PROTHROMBIN TIME (08/18/18) RBC ANTIBODY SCREEN (08/18/18) RBC SED RATE AUTOMATED (12/06/18) ROUTINE VENIPUNCTURE (12/06/18) SMEAR WET [place] SALINE/INK (10/12/15) STOOL CULTR AEROBIC BACT EA (08/25/18) THROMBOPLASTIN TIME PARTIAL (08/18/18) TRICHOMONAS VAGIN DIR PROBE (08/16/18) URINALYSIS AUTO W/SCOPE (08/13/18) URINE CULTURE/COLONY COUNT (08/10/18) VITAMIN B-12 (12/06/18) VITAMIN D 25 HYDROXY (12/06/18) X-RAY EXAM ABDOMEN 2 VIEWS (12/06/18) (1) Perforation bowel SNOMED Code(s): 31018527 Code(s): K63.1 - PERFORATION OF INTESTINE (NONTRAUMATIC) Current Visit: Yes (2) Abscess SNOMED Code(s): 914751545 Code(s): L02.91 - CUTANEOUS ABSCESS, UNSPECIFIED Current Visit: Yes (3) Ulcerative colitis SNOMED Code(s): 67352145 Code(s): K51.90 - ULCERATIVE COLITIS, UNSPECIFIED, WITHOUT COMPLICATIONS Current Visit: Yes Qualifiers: Ulcerative colitis location: other ulcerative colitis Digestive disease complication type: unspecified complication Qualified Code(s): K51.819 - Other ulcerative colitis with unspecified complications Problem List Initiated/Reviewed/Updated: Yes Plan: If the patient remains stable and her abdominal pain does not get worse with no signs of peritonitis, we can continue conservative management with broad- spectrum IV antibiotics, bowel rest, fluid resuscitation, and UC treatment per the medicine team. Will continue to follow along.
[2018-12-10] MEDS: Levofloxacin/Dextrose 5%-Water 750 MG in Premix Bag 1 BAG IV SCH ×3 (22:45)
[2018-12-11] MEDS: metroNIDAZOLE/Normal Saline 500 MG in Premix Bag 1 BAG IV SCH ×5 (00:30→23:48)
[2018-12-11] MEDS: Sodium Chloride 0.9% 1,000 ML IV SCH ×3 (04:00→22:08)
[2018-12-11 06:51] LABS: CHLORIDE,CL 112 mmol/L (98-107); SODIUM,NA 142 mmol/L (136-145)
--- NOTE | 2018-12-11 08:29 | PCM.CONSN ---
- General Info Date of Service: 12/11/18 Subjective Update: Patient feeling well today. Lower abdominal pain has not worsened, however she is still slightly uncomfortable. Her VS were stable overnight and she was afebrile. Hgb dropped ~ 1 gm from yesterday but she received 2 L of fluid. Functional Status: Reports: Pain Controlled - Review of Systems General: Reports: No Symptoms Pulmonary: Reports: No Symptoms Cardiovascular: Reports: No Symptoms Gastrointestinal: Reports: No Symptoms - Patient Data Vitals - Most Recent: Last Vital Signs Temp 36.6 C 12/11/18 07:35 Pulse 74 12/11/18 07:35 Resp 16 12/11/18 07:35 BP 95/58 L 12/11/18 07:35 Pulse Ox 97 12/11/18 07:35 Weight - Most Recent: 49.583 kg I&O - Last 24 Hours: Intake & Output 12/10/18 12/11/18 12/11/18 22:59 06:59 14:59 Intake Total 2412 1108 Output Total 600 Balance 2412 508 Lab Results Last 24 Hours: Laboratory Results - last 24 hr 12/10/18 12/10/18 12/11/18 Range/Units 04:50 14:30 06:23 WBC 5.26 (4.0-11.0) K/uL RBC 2.73 L (4.30-5.90) M/uL Hgb 8.9 L 7.7 L (12.0-16.0) g/dL Hct 28.1 L 23.9 L (36.0-46.0) % MCV 87.5 (80.0-98.0) fL MCH 28.2 (27.0-32.0) pg MCHC 32.2 (31.0-37.0) g/dL RDW Std Deviation 48.8 (28.0-62.0) fl RDW Coeff of [place] 15 (11.0-15.0) % Plt Count 332 (150-400) K/uL MPV 8.00 (7.40-12.00) fL Neut % (Auto) 59.1 (48.0-80.0) % Lymph % (Auto) 31.7 (16.0-40.0) % [place] % (Auto) 8.4 (0.0-15.0) % Eos % (Auto) 0.6 (0.0-7.0) % Baso % (Auto) 0.2 (0.0-1.5) % Neut # (Auto) 3.1 (1.4-5.7) K/uL Lymph # (Auto) 1.7 (0.6-2.4) K/uL [place] # (Auto) 0.4 (0.0-0.8) K/uL Eos # (Auto) 0.0 (0.0-0.7) K/uL Baso # (Auto) 0.0 (0.0-0.1) K/uL Nucleated RBC % 0.0 /100WBC Nucleated RBCs # 0 K/uL ESR 38 H (0-19) mm/hr Sodium (136-145) mmol/L Potassium (3.5-5.1) mmol/L Chloride (98-107) mmol/L Carbon Dioxide (21.0-32.0) mmol/L BUN (7.0-18.0) mg/dL Creatinine (0.6-1.0) mg/dL Est Cr Clr Drug Dosing mL/min Estimated GFR (MDRD) ml/min Glucose (74-106) mg/dL Calcium (8.5-10.1) mg/dL 12/11/18 Range/Units 06:23 WBC (4.0-11.0) K/uL RBC (4.30-5.90) M/uL Hgb (12.0-16.0) g/dL Hct (36.0-46.0) % MCV (80.0-98.0) fL MCH (27.0-32.0) pg MCHC (31.0-37.0) g/dL RDW Std Deviation (28.0-62.0) fl RDW Coeff of [place] (11.0-15.0) % Plt Count (150-400) K/uL MPV (7.40-12.00) fL Neut % (Auto) (48.0-80.0) % Lymph % (Auto) (16.0-40.0) % [place] % (Auto) (0.0-15.0) % Eos % (Auto) (0.0-7.0) % Baso % (Auto) (0.0-1.5) % Neut # (Auto) (1.4-5.7) K/uL Lymph # (Auto) (0.6-2.4) K/uL [place] # (Auto) (0.0-0.8) K/uL Eos # (Auto) (0.0-0.7) K/uL Baso # (Auto) (0.0-0.1) K/uL Nucleated RBC % /100WBC Nucleated RBCs # K/uL ESR (0-19) mm/hr Sodium 142 (136-145) mmol/L Potassium 3.4 L (3.5-5.1) mmol/L Chloride 112 H (98-107) mmol/L Carbon Dioxide 17.3 L (21.0-32.0) mmol/L BUN 4 L (7.0-18.0) mg/dL Creatinine 0.5 L (0.6-1.0) mg/dL Est Cr Clr Drug Dosing 114.73 mL/min Estimated GFR (MDRD) > 60.0 ml/min Glucose 66 L (74-106) mg/dL Calcium 7.2 L (8.5-10.1) mg/dL Amandeep Results Last 24 Hours: Microbiology 12/08/18 23:56 Aerobic Blood Culture - Preliminary Blood - Venous - Lab Draw NO GROWTH AFTER 2 DAYS Anaerobic Blood Culture - Final 12/08/18 23:45 Aerobic Blood Culture - Preliminary Blood - Venous NO GROWTH AFTER 2 DAYS Anaerobic Blood Culture - Final 12/10/18 13:45 Campylobacter Antigen Assay - Final Stool / Feces NEGATIVE CAMPYLOBACTER AG REFERENCE RANGE: NEGATIVE 12/10/18 13:45 Stool Occult Blood (AMANDEEP) - Final Stool / Feces POSITIVE OCCULT BLOOD REFERENCE RANGE: NEGATIVE Med Orders - Current: Current Medications Acetaminophen (Tylenol) 650 mg PO Q4H PRN PRN Reason: Pain (Mild 1-3)/fever Last Admin: 12/09/18 20:38 Dose: 650 mg Sodium Chloride (Normal Saline) 1,000 mls @ 125 mls/hr IV ASDIRECTED [facility] Last Admin: 12/11/18 04:00 Dose: 125 mls/hr Levofloxacin/Dextrose 750 mg/ (Premix) 150 mls @ 100 mls/hr IV Q24H [facility] Last Admin: 12/10/18 22:45 Dose: 100 mls/hr Metronidazole 500 mg/ Premix 100 mls @ 100 mls/hr IV QID [facility] Last Admin: 12/11/18 05:55 Dose: 100 mls/hr Discontinued Medications Calcium Carbonate/Glycine (Tums) 1,000 mg PO ONETIME ONE Stop: 12/09/18 07:39 Last Admin: 12/09/18 08:19 Dose: 1,000 mg Sodium Chloride (Normal Saline) 1,000 mls @ 999 mls/hr IV BOLUS ONE Stop: 12/08/18 17:22 Last Admin: 12/08/18 16:36 Dose: 999 mls/hr Sodium Chloride (Normal Saline) 1,000 mls @ 999 mls/hr IV .Bolus ONE Stop: 12/08/18 18:33 Last Admin: 12/08/18 17:41 Dose: 999 mls/hr Albumin Human (Buminate 5%) 250 mls @ 125 mls/hr IV Q2H [facility] Stop: 12/08/18 22:29 Last Admin: 12/08/18 21:37 Dose: Not Given Albumin Human (Buminate 5%) 250 mls @ 125 mls/hr IV ONETIME ONE Stop: 12/09/18 01:59 Last Admin: 12/08/18 23:44 Dose: 125 mls/hr Iopamidol (Isovue Multipack-370 (76%)) 75 ml IVPUSH ONETIME ONE Stop: 12/10/18 10:07 Last Admin: 12/10/18 10:06 Dose: 75 ml Ondansetron HCl (Zofran) 4 mg IVPUSH ONETIME ONE Stop: 12/08/18 16:23 Last Admin: 12/08/18 16:37 Dose: Not Given Potassium Chloride (Klor-Con M20) 40 meq PO ONETIME ONE Stop: 12/08/18 18:22 Last Admin: 12/08/18 18:47 Dose: 40 meq Potassium Chloride (Klor-Con M20) 20 meq PO ONETIME ONE Stop: 12/10/18 08:37 Last Admin: 12/10/18 10:11 Dose: 20 meq - Exam General: Alert, Oriented, Cooperative Lungs: Clear to Auscultation, Normal Respiratory Effort Cardiovascular: Regular Rate, Regular Rhythm GI/Abdominal Exam: Soft, Non-Tender, No Distention, No Mass Consult PN Assessment/Plan Procedures: Procedures AGENT NOS ASSAY W/OPTIC (08/25/18) ASSAY THYROID STIM HORMONE (12/06/18) BLOOD TYPING SEROLOGIC ABO (08/18/18) BLOOD TYPING SEROLOGIC RH(D) (08/18/18) C-REACTIVE PROTEIN (12/06/18) MERLY DNA DIR PROBE (08/16/18) CHORIONIC GONADOTROPIN TEST (08/10/18) CLOSTRIDIUM AG IA (08/25/18) COMPLETE CBC AUTOMATED (12/06/18) COMPLETE CBC W/AUTO DIFF WBC (10/13/18) COMPREHEN METABOLIC PANEL (12/06/18) CRYPTOSPORIDIUM AG IA (08/25/18) CT ABD & PELV W/CONTRAST (08/25/18) CULTURE SCREEN ONLY (04/22/16) EMERGENCY DEPT VISIT (08/18/18) TALAVERA VAG DNA DIR PROBE (08/16/18) GIARDIA AG IA (08/25/18) GLUCOSE TEST (03/13/16) GLUCOSE TOLERANCE TEST (GTT) (03/26/16) HPYLORI STOOL IA (08/25/18) HYDRATION IV INFUSION INIT (08/18/18) IRON BINDING TEST (12/06/18) LACTOFERRIN FECAL (QUAL) (08/25/18) METABOLIC PANEL TOTAL CA (10/13/18) PROTHROMBIN TIME (08/18/18) RBC ANTIBODY SCREEN (08/18/18) RBC SED RATE AUTOMATED (12/06/18) ROUTINE VENIPUNCTURE (12/06/18) SMEAR WET [place] SALINE/INK (10/12/15) STOOL CULTR AEROBIC BACT EA (08/25/18) THROMBOPLASTIN TIME PARTIAL (08/18/18) TRICHOMONAS VAGIN DIR PROBE (08/16/18) URINALYSIS AUTO W/SCOPE (08/13/18) URINE CULTURE/COLONY COUNT (08/10/18) VITAMIN B-12 (12/06/18) VITAMIN D 25 HYDROXY (12/06/18) X-RAY EXAM ABDOMEN 2 VIEWS (12/06/18) X-RAY EXAM CHEST 2 VIEWS (12/08/18) (1) Perforation bowel SNOMED Code(s): 95978404 Code(s): K63.1 - PERFORATION OF INTESTINE (NONTRAUMATIC) Current Visit: Yes (2) Abscess SNOMED Code(s): 061909598 Code(s): L02.91 - CUTANEOUS ABSCESS, UNSPECIFIED Current Visit: Yes (3) Ulcerative colitis SNOMED Code(s): 30206514 Code(s): K51.90 - ULCERATIVE COLITIS, UNSPECIFIED, WITHOUT COMPLICATIONS Current Visit: Yes Qualifiers: Ulcerative colitis location: other ulcerative colitis Digestive disease complication type: unspecified complication Qualified Code(s): K51.819 - Other ulcerative colitis with unspecified complications Problem List Initiated/Reviewed/Updated: No Plan: Patient's diet can be advanced as tolerated and she can be switched to oral antibiotics. Her abdomen is soft and nontender. We discussed options for follow up. She was not happy with the GI physician she saw in [place]. Her and her would like to be referred to [facility] for outpatient follow up. I will arrange this on Thursday. I will continue to follow for now.
--- NOTE | 2018-12-11 09:14 | PCM.PN ---
- General Info Date of Service: 12/11/18 - Review of Systems Systems Review Comment:: left lower quandrant pain is mild and stable, - Patient Data Vitals - Most Recent: Last Vital Signs Temp 36.6 C 12/11/18 07:35 Pulse 74 12/11/18 07:35 Resp 16 12/11/18 07:35 BP 95/58 L 12/11/18 07:35 Pulse Ox 97 12/11/18 07:35 Weight - Most Recent: 49.583 kg I&O - Last 24 Hours: Intake & Output 12/10/18 12/11/18 12/11/18 22:59 06:59 14:59 Intake Total 2412 1108 Output Total 600 Balance 2412 508 Lab Results Last 24 Hours: Laboratory Results - last 24 hr 12/10/18 12/11/18 12/11/18 Range/Units 14:30 06:23 06:23 WBC 5.26 (4.0-11.0) K/uL RBC 2.73 L (4.30-5.90) M/uL Hgb 8.9 L 7.7 L (12.0-16.0) g/dL Hct 28.1 L 23.9 L (36.0-46.0) % MCV 87.5 (80.0-98.0) fL MCH 28.2 (27.0-32.0) pg MCHC 32.2 (31.0-37.0) g/dL RDW Std Deviation 48.8 (28.0-62.0) fl RDW Coeff of [place] 15 (11.0-15.0) % Plt Count 332 (150-400) K/uL MPV 8.00 (7.40-12.00) fL Neut % (Auto) 59.1 (48.0-80.0) % Lymph % (Auto) 31.7 (16.0-40.0) % [place] % (Auto) 8.4 (0.0-15.0) % Eos % (Auto) 0.6 (0.0-7.0) % Baso % (Auto) 0.2 (0.0-1.5) % Neut # (Auto) 3.1 (1.4-5.7) K/uL Lymph # (Auto) 1.7 (0.6-2.4) K/uL [place] # (Auto) 0.4 (0.0-0.8) K/uL Eos # (Auto) 0.0 (0.0-0.7) K/uL Baso # (Auto) 0.0 (0.0-0.1) K/uL Nucleated RBC % 0.0 /100WBC Nucleated RBCs # 0 K/uL Sodium 142 (136-145) mmol/L Potassium 3.4 L (3.5-5.1) mmol/L Chloride 112 H (98-107) mmol/L Carbon Dioxide 17.3 L (21.0-32.0) mmol/L BUN 4 L (7.0-18.0) mg/dL Creatinine 0.5 L (0.6-1.0) mg/dL Est Cr Clr Drug Dosing 114.73 mL/min Estimated GFR (MDRD) > 60.0 ml/min Glucose 66 L (74-106) mg/dL Calcium 7.2 L (8.5-10.1) mg/dL Amandeep Results Last 24 Hours: Microbiology 12/08/18 23:56 Aerobic Blood Culture - Preliminary Blood - Venous - Lab Draw NO GROWTH AFTER 2 DAYS Anaerobic Blood Culture - Final 12/08/18 23:45 Aerobic Blood Culture - Preliminary Blood - Venous NO GROWTH AFTER 2 DAYS Anaerobic Blood Culture - Final 12/10/18 13:45 Campylobacter Antigen Assay - Final Stool / Feces NEGATIVE CAMPYLOBACTER AG REFERENCE RANGE: NEGATIVE 12/10/18 13:45 Stool Occult Blood (AMANDEEP) - Final Stool / Feces POSITIVE OCCULT BLOOD REFERENCE RANGE: NEGATIVE Med Orders - Current: Current Medications Acetaminophen (Tylenol) 650 mg PO Q4H PRN PRN Reason: Pain (Mild 1-3)/fever Last Admin: 12/09/18 20:38 Dose: 650 mg Sodium Chloride (Normal Saline) 1,000 mls @ 125 mls/hr IV ASDIRECTED [facility] Last Admin: 12/11/18 04:00 Dose: 125 mls/hr Levofloxacin/Dextrose 750 mg/ (Premix) 150 mls @ 100 mls/hr IV Q24H [facility] Last Admin: 12/10/18 22:45 Dose: 100 mls/hr Metronidazole 500 mg/ Premix 100 mls @ 100 mls/hr IV QID [facility] Last Admin: 12/11/18 05:55 Dose: 100 mls/hr Discontinued Medications Calcium Carbonate/Glycine (Tums) 1,000 mg PO ONETIME ONE Stop: 12/09/18 07:39 Last Admin: 12/09/18 08:19 Dose: 1,000 mg Sodium Chloride (Normal Saline) 1,000 mls @ 999 mls/hr IV BOLUS ONE Stop: 12/08/18 17:22 Last Admin: 12/08/18 16:36 Dose: 999 mls/hr Sodium Chloride (Normal Saline) 1,000 mls @ 999 mls/hr IV .Bolus ONE Stop: 12/08/18 18:33 Last Admin: 12/08/18 17:41 Dose: 999 mls/hr Albumin Human (Buminate 5%) 250 mls @ 125 mls/hr IV Q2H [facility] Stop: 12/08/18 22:29 Last Admin: 12/08/18 21:37 Dose: Not Given Albumin Human (Buminate 5%) 250 mls @ 125 mls/hr IV ONETIME ONE Stop: 12/09/18 01:59 Last Admin: 12/08/18 23:44 Dose: 125 mls/hr Iopamidol (Isovue Multipack-370 (76%)) 75 ml IVPUSH ONETIME ONE Stop: 12/10/18 10:07 Last Admin: 12/10/18 10:06 Dose: 75 ml Ondansetron HCl (Zofran) 4 mg IVPUSH ONETIME ONE Stop: 12/08/18 16:23 Last Admin: 12/08/18 16:37 Dose: Not Given Potassium Chloride (Klor-Con M20) 40 meq PO ONETIME ONE Stop: 12/08/18 18:22 Last Admin: 12/08/18 18:47 Dose: 40 meq Potassium Chloride (Klor-Con M20) 20 meq PO ONETIME ONE Stop: 12/10/18 08:37 Last Admin: 12/10/18 10:11 Dose: 20 meq - Exam General: Alert, Oriented Lungs: Clear to Auscultation, Normal Respiratory Effort Cardiovascular: Regular Rate, Regular Rhythm GI/Abdominal Exam: Normal Bowel Sounds, Soft, Non-Tender Extremities: Non-Tender, No Pedal Edema Skin: Warm, Dry, Intact - Problem List Review Problem List Initiated/Reviewed/Updated: Yes - My Orders Last 24 Hours: My Active Orders 12/11/18 Lunch Clear Liquid Diet [DIET] - Plan Plan:: 43 yo female admitted for ulcerative colitis with abscess and possible pneumonia. Treating with Levaquin and Flagyl. We will advance diet to clears.
[2018-12-11] MEDS: Levofloxacin/Dextrose 5%-Water 750 MG in Premix Bag 1 BAG IV SCH (22:06)
[2018-12-12] MEDS: metroNIDAZOLE/Normal Saline 500 MG in Premix Bag 1 BAG IV SCH (05:12)
[2018-12-12] MEDS: Sodium Chloride 0.9% 1,000 ML IV SCH (05:13)
[2018-12-12 07:18] LABS: CHLORIDE,CL 112 mmol/L (98-107); SODIUM,NA 143 mmol/L (136-145)
[2018-12-12 07:25] VITALS: BP 101/63
--- NOTE | 2018-12-12 08:31 | PCM.CONSN ---
- General Info Date of Service: 12/12/18 Subjective Update: Patient noticed some twinges of pain along the left side last evening. She noticed discomfort in her rectum with BM as well. No acute events overnight. No fevers. No chills. Tolerated clears. - Review of Systems General: Reports: No Symptoms HEENT: Reports: No Symptoms Pulmonary: Reports: No Symptoms Cardiovascular: Reports: No Symptoms Gastrointestinal: Reports: Abdominal Pain (LLQ along left hip) - Patient Data Vitals - Most Recent: Last Vital Signs Temp 36.6 C 12/12/18 07:24 Pulse 68 12/12/18 07:24 Resp 16 12/12/18 07:24 BP 101/63 12/12/18 07:24 Pulse Ox 100 12/12/18 07:24 Weight - Most Recent: 49.583 kg I&O - Last 24 Hours: Intake & Output 12/11/18 12/12/18 12/12/18 22:59 06:59 14:59 Intake Total 1739 1825 Output Total 750 750 Balance 989 1075 Lab Results Last 24 Hours: Laboratory Results - last 24 hr 12/12/18 12/12/18 Range/Units 06:54 06:54 WBC 4.05 (4.0-11.0) K/uL RBC 2.90 L (4.30-5.90) M/uL Hgb 8.1 L (12.0-16.0) g/dL Hct 25.2 L (36.0-46.0) % MCV 86.9 (80.0-98.0) fL MCH 27.9 (27.0-32.0) pg MCHC 32.1 (31.0-37.0) g/dL RDW Std Deviation 47.4 (28.0-62.0) fl RDW Coeff of [place] 15 (11.0-15.0) % Plt Count 389 (150-400) K/uL MPV 7.90 (7.40-12.00) fL Neut % (Auto) 49.7 (48.0-80.0) % Lymph % (Auto) 41.2 H (16.0-40.0) % [place] % (Auto) 7.2 (0.0-15.0) % Eos % (Auto) 1.7 (0.0-7.0) % Baso % (Auto) 0.2 (0.0-1.5) % Neut # (Auto) 2.0 (1.4-5.7) K/uL Lymph # (Auto) 1.7 (0.6-2.4) K/uL [place] # (Auto) 0.3 (0.0-0.8) K/uL Eos # (Auto) 0.1 (0.0-0.7) K/uL Baso # (Auto) 0.0 (0.0-0.1) K/uL Nucleated RBC % 0.0 /100WBC Nucleated RBCs # 0 K/uL Sodium 143 (136-145) mmol/L Potassium 2.9 L (3.5-5.1) mmol/L Chloride 112 H (98-107) mmol/L Carbon Dioxide 17.7 L (21.0-32.0) mmol/L BUN 1 L (7.0-18.0) mg/dL Creatinine 0.5 L (0.6-1.0) mg/dL Est Cr Clr Drug Dosing 114.73 mL/min Estimated GFR (MDRD) > 60.0 ml/min Glucose 72 L (74-106) mg/dL Calcium 7.2 L (8.5-10.1) mg/dL Amandeep Results Last 24 Hours: Microbiology 12/08/18 23:56 Aerobic Blood Culture - Preliminary Blood - Venous - Lab Draw NO GROWTH AFTER 3 DAYS Anaerobic Blood Culture - Final 12/08/18 23:45 Aerobic Blood Culture - Preliminary Blood - Venous NO GROWTH AFTER 3 DAYS Anaerobic Blood Culture - Final 12/10/18 13:45 Campylobacter Antigen Assay - Final Stool / Feces NEGATIVE CAMPYLOBACTER AG REFERENCE RANGE: NEGATIVE Shiga Toxin I - Final NEGATIVE FOR SHIGA TOXIN 1 REFERENCE RANGE: NEGATIVE Shiga Toxin II - Final NEGATIVE FOR SHIGA TOXIN 2 REFERENCE RANGE: NEGATIVE Med Orders - Current: Current Medications Acetaminophen (Tylenol) 650 mg PO Q4H PRN PRN Reason: Pain (Mild 1-3)/fever Last Admin: 12/09/18 20:38 Dose: 650 mg Sodium Chloride (Normal Saline) 1,000 mls @ 125 mls/hr IV ASDIRECTED [facility] Last Admin: 12/12/18 05:13 Dose: 125 mls/hr Levofloxacin/Dextrose 750 mg/ (Premix) 150 mls @ 100 mls/hr IV Q24H [facility] Last Admin: 12/11/18 22:06 Dose: 100 mls/hr Metronidazole 500 mg/ Premix 100 mls @ 100 mls/hr IV QID [facility] Last Admin: 12/12/18 05:12 Dose: 100 mls/hr Discontinued Medications Calcium Carbonate/Glycine (Tums) 1,000 mg PO ONETIME ONE Stop: 12/09/18 07:39 Last Admin: 12/09/18 08:19 Dose: 1,000 mg Sodium Chloride (Normal Saline) 1,000 mls @ 999 mls/hr IV BOLUS ONE Stop: 12/08/18 17:22 Last Admin: 12/08/18 16:36 Dose: 999 mls/hr Sodium Chloride (Normal Saline) 1,000 mls @ 999 mls/hr IV .Bolus ONE Stop: 12/08/18 18:33 Last Admin: 12/08/18 17:41 Dose: 999 mls/hr Albumin Human (Buminate 5%) 250 mls @ 125 mls/hr IV Q2H [facility] Stop: 12/08/18 22:29 Last Admin: 12/08/18 21:37 Dose: Not Given Albumin Human (Buminate 5%) 250 mls @ 125 mls/hr IV ONETIME ONE Stop: 12/09/18 01:59 Last Admin: 12/08/18 23:44 Dose: 125 mls/hr Iopamidol (Isovue Multipack-370 (76%)) 75 ml IVPUSH ONETIME ONE Stop: 12/10/18 10:07 Last Admin: 12/10/18 10:06 Dose: 75 ml Ondansetron HCl (Zofran) 4 mg IVPUSH ONETIME ONE Stop: 12/08/18 16:23 Last Admin: 12/08/18 16:37 Dose: Not Given Potassium Chloride (Klor-Con M20) 40 meq PO ONETIME ONE Stop: 12/08/18 18:22 Last Admin: 12/08/18 18:47 Dose: 40 meq Potassium Chloride (Klor-Con M20) 20 meq PO ONETIME ONE Stop: 12/10/18 08:37 Last Admin: 12/10/18 10:11 Dose: 20 meq - Exam General: Alert, Oriented, Cooperative Lungs: Normal Respiratory Effort Cardiovascular: Regular Rate GI/Abdominal Exam: Soft, Non-Tender, No Distention, No Mass Consult PN Assessment/Plan Procedures: Procedures AGENT NOS ASSAY W/OPTIC (08/25/18) ASSAY THYROID STIM HORMONE (12/06/18) BLOOD TYPING SEROLOGIC ABO (08/18/18) BLOOD TYPING SEROLOGIC RH(D) (08/18/18) C-REACTIVE PROTEIN (12/06/18) MERLY DNA DIR PROBE (08/16/18) CHORIONIC GONADOTROPIN TEST (08/10/18) CLOSTRIDIUM AG IA (08/25/18) COMPLETE CBC AUTOMATED (12/06/18) COMPLETE CBC W/AUTO DIFF WBC (10/13/18) COMPREHEN METABOLIC PANEL (12/06/18) CRYPTOSPORIDIUM AG IA (08/25/18) CT ABD & PELV W/CONTRAST (08/25/18) CULTURE SCREEN ONLY (04/22/16) EMERGENCY DEPT VISIT (08/18/18) TALAVERA VAG DNA DIR PROBE (08/16/18) GIARDIA AG IA (08/25/18) GLUCOSE TEST (03/13/16) GLUCOSE TOLERANCE TEST (GTT) (03/26/16) HPYLORI STOOL IA (08/25/18) HYDRATION IV INFUSION INIT (08/18/18) IRON BINDING TEST (12/06/18) LACTOFERRIN FECAL (QUAL) (08/25/18) METABOLIC PANEL TOTAL CA (10/13/18) PROTHROMBIN TIME (08/18/18) RBC ANTIBODY SCREEN (08/18/18) RBC SED RATE AUTOMATED (12/06/18) ROUTINE VENIPUNCTURE (12/06/18) SMEAR WET [place] SALINE/INK (10/12/15) STOOL CULTR AEROBIC BACT EA (08/25/18) THROMBOPLASTIN TIME PARTIAL (08/18/18) TRICHOMONAS VAGIN DIR PROBE (08/16/18) URINALYSIS AUTO W/SCOPE (08/13/18) URINE CULTURE/COLONY COUNT (08/10/18) VITAMIN B-12 (12/06/18) VITAMIN D 25 HYDROXY (12/06/18) X-RAY EXAM ABDOMEN 2 VIEWS (12/06/18) X-RAY EXAM CHEST 2 VIEWS (12/08/18) (1) Perforation bowel SNOMED Code(s): 64827217 Code(s): K63.1 - PERFORATION OF INTESTINE (NONTRAUMATIC) Current Visit: Yes (2) Abscess SNOMED Code(s): 161784747 Code(s): L02.91 - CUTANEOUS ABSCESS, UNSPECIFIED Current Visit: Yes (3) Ulcerative colitis SNOMED Code(s): 74703024 Code(s): K51.90 - ULCERATIVE COLITIS, UNSPECIFIED, WITHOUT COMPLICATIONS Current Visit: Yes Qualifiers: Ulcerative colitis location: other ulcerative colitis Digestive disease complication type: unspecified complication Qualified Code(s): K51.819 - Other ulcerative colitis with unspecified complications Problem List Initiated/Reviewed/Updated: Yes Plan: I expect her to still have some discomfort in the left lower abdomen and rectum as the area of inflammation is low. Patient and I discussed concerning symptoms such as peritonitis and signs of systemic infection. Advance diet to regular today and start on oral antibiotics. Will arrange outpatient follow up with [facility]. Will sign off at this time. Call with any questions or concerns.
[2018-12-12] MEDS ORDERED: Potassium Chloride 20 MEQ Tab.ER PO ONE (08:39)
--- NOTE | 2018-12-12 09:02 | PCM.DCSUM1 ---
Discharge Summary - Hospital Course Free Text/Narrative:: Admission date: 12/08/2018 Discharge date: 12/12/2018 Admission diagnosis: #1. Syncope #2. Hypotension #3. Hypoalbuminemia #4. Hypokalemia #5. Normocytic anemia #6. History of ulcerative colitis Discharge diagnosis: #1. Small colonic perforation and small sigmoid colon abscess 2cm #2. Possible pneumonia #3. Normocytic anemia #4. Ulcerative colitis #5. Hypokalemia #6. Hypoalbuminemia Consults: Dr. Holliday, general surgery Disposition: Home Discharge medications: #1. PO Flagyl x6 days #2. PO Levaquin x6 days #3. PO Kcl 20meq daily x6 days Follow up: #1. Dr. Hodge, PCP #2. GI - [facility] (Dr. Holliday to arrange for this referral) Hospital course: This is a 43F with a new diagnosis of ulcerative colitis that was admitted to the hospital after having a syncopal episode. Patient was being evaluated by her PCP obtaining CXR after noting atelectasis seen on abdominal x-ray; which was obtained for LLQ tenderness/palpable mass. Patient was admitted for the syncopal episode and treated initially for a possible pneumonia seen on CXR. However, patient continued to complain of LLQ discomfort that occurred intermittently and had repeat fevers. A CT abdomen/pelvis was obtained which showed #1 on the discharge diagnosis. Dr. Holliday was consulted, along with GI [place] phone conversation who agreed with medical management. Patient was placed on IV Levaquin, Flagyl to cove for her pneumonia and the colitis/ abscess. At the time of discharge, patient was afebrile x24 hours, pain was minimal, she was able to tolerate PO. She needs to be set up with another GI physician for further management, and consideration of a biologic which I urged the patient to look more into. She should also increase protein in her diet. I recommend that she get a repeat CBC, BMP at the follow up appointment because of normocytic anemia, and hypokalemia. - Discharge Data Discharge Date: 12/12/18 Discharge Disposition: Home, Self-Care 01 Condition: Stable - Patient Summary/Data Consults: Consultations 12/09/18 09:54 Consult to Employment Representative [CONS] Routine 12/10/18 12:32 Consult to Physician [CONS] Routine - Patient Instructions Diet: Usual Diet as Tolerated Activity: As Tolerated Notify Provider of: Fever, Increased Pain, Nausea and/or Vomiting - Discharge Plan *PRESCRIPTION DRUG MONITORING PROGRAM REVIEWED*: No *COPY OF PRESCRIPTION DRUG MONITORING REPORT IN PATIENT STACI: No Prescriptions/Med Rec: Levofloxacin [Levaquin] 750 mg PO Q24H 6 Days #6 tablet metroNIDAZOLE [Flagyl] 500 mg PO Q8H 6 Days #18 tab Potassium Chloride 20 meq PO DAILY 7 Days #7 tablet.er Home Medications: Home Meds Levofloxacin [Levaquin] 750 mg PO Q24H 6 Days #6 tablet 12/12/18 [Rx] Potassium Chloride 20 meq PO DAILY 7 Days #7 tablet.er 12/12/18 [Rx] metroNIDAZOLE [Flagyl] 500 mg PO Q8H 6 Days #18 tab 12/12/18 [Rx] Patient Handouts: Ulcerative Colitis, Adult Referrals: John Hodge MD [Physician] - 12/22/18 4:00 pm Tanja Holliday MD [Physician] - - Discharge Summary/Plan Comment DC Time >30 min.: Yes - Patient Data Vitals - Most Recent: Last Vital Signs Temp 36.6 C 12/12/18 07:24 Pulse 68 12/12/18 07:24 Resp 16 12/12/18 07:24 BP 101/63 12/12/18 07:24 Pulse Ox 100 12/12/18 07:24 Weight - Most Recent: 49.583 kg I&O - Last 24 hours: Intake & Output 12/11/18 12/12/18 12/12/18 22:59 06:59 14:59 Intake Total 1739 1825 Output Total 750 750 Balance 989 1075 Lab Results - Last 24 hrs: Laboratory Results - last 24 hr 12/12/18 12/12/18 Range/Units 06:54 06:54 WBC 4.05 (4.0-11.0) K/uL RBC 2.90 L (4.30-5.90) M/uL Hgb 8.1 L (12.0-16.0) g/dL Hct 25.2 L (36.0-46.0) % MCV 86.9 (80.0-98.0) fL MCH 27.9 (27.0-32.0) pg MCHC 32.1 (31.0-37.0) g/dL RDW Std Deviation 47.4 (28.0-62.0) fl RDW Coeff of [place] 15 (11.0-15.0) % Plt Count 389 (150-400) K/uL MPV 7.90 (7.40-12.00) fL Neut % (Auto) 49.7 (48.0-80.0) % Lymph % (Auto) 41.2 H (16.0-40.0) % [place] % (Auto) 7.2 (0.0-15.0) % Eos % (Auto) 1.7 (0.0-7.0) % Baso % (Auto) 0.2 (0.0-1.5) % Neut # (Auto) 2.0 (1.4-5.7) K/uL Lymph # (Auto) 1.7 (0.6-2.4) K/uL [place] # (Auto) 0.3 (0.0-0.8) K/uL Eos # (Auto) 0.1 (0.0-0.7) K/uL Baso # (Auto) 0.0 (0.0-0.1) K/uL Nucleated RBC % 0.0 /100WBC Nucleated RBCs # 0 K/uL Sodium 143 (136-145) mmol/L Potassium 2.9 L (3.5-5.1) mmol/L Chloride 112 H (98-107) mmol/L Carbon Dioxide 17.7 L (21.0-32.0) mmol/L BUN 1 L (7.0-18.0) mg/dL Creatinine 0.5 L (0.6-1.0) mg/dL Est Cr Clr Drug Dosing 114.73 mL/min Estimated GFR (MDRD) > 60.0 ml/min Glucose 72 L (74-106) mg/dL Calcium 7.2 L (8.5-10.1) mg/dL SERINA Results - Last 24 hrs: Microbiology 12/08/18 23:56 Aerobic Blood Culture - Preliminary Blood - Venous - Lab Draw NO GROWTH AFTER 3 DAYS Anaerobic Blood Culture - Final 12/08/18 23:45 Aerobic Blood Culture - Preliminary Blood - Venous NO GROWTH AFTER 3 DAYS Anaerobic Blood Culture - Final 12/10/18 13:45 Campylobacter Antigen Assay - Final Stool / Feces NEGATIVE CAMPYLOBACTER AG REFERENCE RANGE: NEGATIVE Shiga Toxin I - Final NEGATIVE FOR SHIGA TOXIN 1 REFERENCE RANGE: NEGATIVE Shiga Toxin II - Final NEGATIVE FOR SHIGA TOXIN 2 REFERENCE RANGE: NEGATIVE Med Orders - Current: Current Medications Acetaminophen (Tylenol) 650 mg PO Q4H PRN PRN Reason: Pain (Mild 1-3)/fever Last Admin: 12/09/18 20:38 Dose: 650 mg Sodium Chloride (Normal Saline) 1,000 mls @ 125 mls/hr IV ASDIRECTED [facility] Last Admin: 12/12/18 05:13 Dose: 125 mls/hr Levofloxacin/Dextrose 750 mg/ (Premix) 150 mls @ 100 mls/hr IV Q24H [facility] Last Admin: 12/11/18 22:06 Dose: 100 mls/hr Metronidazole 500 mg/ Premix 100 mls @ 100 mls/hr IV QID [facility] Last Admin: 12/12/18 05:12 Dose: 100 mls/hr Discontinued Medications Calcium Carbonate/Glycine (Tums) 1,000 mg PO ONETIME ONE Stop: 12/09/18 07:39 Last Admin: 12/09/18 08:19 Dose: 1,000 mg Sodium Chloride (Normal Saline) 1,000 mls @ 999 mls/hr IV BOLUS ONE Stop: 12/08/18 17:22 Last Admin: 12/08/18 16:36 Dose: 999 mls/hr Sodium Chloride (Normal Saline) 1,000 mls @ 999 mls/hr IV .Bolus ONE Stop: 12/08/18 18:33 Last Admin: 12/08/18 17:41 Dose: 999 mls/hr Albumin Human (Buminate 5%) 250 mls @ 125 mls/hr IV Q2H [facility] Stop: 12/08/18 22:29 Last Admin: 12/08/18 21:37 Dose: Not Given Albumin Human (Buminate 5%) 250 mls @ 125 mls/hr IV ONETIME ONE Stop: 12/09/18 01:59 Last Admin: 12/08/18 23:44 Dose: 125 mls/hr Iopamidol (Isovue Multipack-370 (76%)) 75 ml IVPUSH ONETIME ONE Stop: 12/10/18 10:07 Last Admin: 12/10/18 10:06 Dose: 75 ml Ondansetron HCl (Zofran) 4 mg IVPUSH ONETIME ONE Stop: 12/08/18 16:23 Last Admin: 12/08/18 16:37 Dose: Not Given Potassium Chloride (Klor-Con M20) 40 meq PO ONETIME ONE Stop: 12/08/18 18:22 Last Admin: 12/08/18 18:47 Dose: 40 meq Potassium Chloride (Klor-Con M20) 20 meq PO ONETIME ONE Stop: 12/10/18 08:37 Last Admin: 12/10/18 10:11 Dose: 20 meq Potassium Chloride (Klor-Con M20) 40 meq PO ONETIME ONE Stop: 12/12/18 08:40 Last Admin: 12/12/18 08:51 Dose: 40 meq
== END 2018-12-12 10:35 | disposition home or self-care (01) | DRG 385 ==
LOC: MW.ED 16:21 → MW.MS 17:30 → OBSVTOIN 12-10 15:20
PROVIDERS: ADMIT Internal Medicine; ATTEND Internal Medicine
DX: K51.914 Ulcerative colitis, unspecified with abscess (principal); K63.1 Perforation of intestine (nontraumatic); J18.9 Pneumonia, unspecified organism; I95.1 Orthostatic hypotension; E88.09 Other disorders of plasma-protein metabolism, not elsewhere classified; E87.6 Hypokalemia; D64.9 Anemia, unspecified
CPT/HCPCS: 36415; 71046; 71046-26; 74177; 74177-26; 80048; 80053; 81001; 82272; 82607; 82746; 83690; 83735; 84100; 84484; 84703; 85014; 85018; 85025; 85652; 87040; 87046; 87899; 93005; 96360; 96361; 96365; 96366; 96367; 96376; 99285-25; A9270-GY; G0378; J1956; J3490; J7040; Q9967

== ENCOUNTER 2021-11-16 18:30 | Emergency (ER) | payer MEDICAID ==
[2021-11-16] MEDS ORDERED: Sodium Chloride 0.9% 1,000 ML IV ONE ×3 (19:01→20:39)
[2021-11-16] MEDS ORDERED: Ondansetron 4 MG/2 ML SDV IVPUSH ONE ×2 (19:01→23:42)
[2021-11-16] MEDS ORDERED: Piperacillin/Tazobactam 3.375 GM in Sodium Chloride 0.9% 50 ML IV ONE (19:50)
[2021-11-16] MEDS ORDERED: Morphine 4 MG/ML VIAL IVPUSH ONE (19:58)
[2021-11-16 20:09] LABS: BLOOD UREA NITROGEN,BUN 12 mg/dL (7.0-18.0); CARBON DIOXIDE,CO2 23.1 mmol/L (21.0-32.0); CHLORIDE,CL 102 mmol/L (98-107); GLUCOSE RANDOM 125 mg/dL (74-106); POTASSIUM,K 4.2 mmol/L (3.5-5.1); SODIUM,NA 138 mmol/L (136-145)
[2021-11-16 20:23] LABS: LIPASE 7682 U/L (73-393)
[2021-11-16] MEDS ORDERED: Iopamidol 755 MG/ML 500 ML Multipack Bottle IVPUSH ONE (21:07)
[2021-11-16] MEDS ORDERED: HYDROmorphone 1 MG/ML Syringe IVPUSH ONE ×2 (21:40→23:43)
[2021-11-16] MEDS ORDERED: Acetaminophen 500 MG Tab PO ONE (23:53)
[2021-11-17] MEDS ORDERED: Scopolamine 1.5 MG Transdermal Patch TOP ONE (00:41)
[2021-11-17 04:41] VITALS: BP 102/61; PULSE 74
== END 2021-11-17 01:00 ==
LOC: MW.ED 18:30
DX: K85.80 Other acute pancreatitis without necrosis or infection (principal); Z20.822 Contact with and (suspected) exposure to COVID-19
CPT/HCPCS: 36415; 74177; 80053; 81001; 83605; 83690; 84703; 85025; 87040; 87635; 96365; 96375; 96376; 99285; A9270; J1170; J2270; J2405; J2543; J7030; U0002